=== PATIENT | female | born 1960 | race American Indian/Alaskan Native ===

== ENCOUNTER 2016-09-05 13:36 | Outpatient (CLI) | payer MEDICAID ==
--- NOTE | 2016-09-06 09:55 | Mammography Report ---
Bilateral mammogram: Compared to 09/04/15. CAD study utilized. Findings: Predominance adipose tissue bilaterally. No mass or microcalcification. Focal new asymmetry posterior mid left breast. Impression: Focal new asymmetry posterior left breast. Recommend spot mag and if necessary sonographic examination. BI-RADS CATEGORY: 0 = Needs additional imaging evaluation ACR BI-RADS MAMMOGRAPHIC CODES: 0 = Needs additional imaging evaluation; 1 = Negative; 2 = Benign; 3 = Probably benign; 4 = Suspicious; 5 = Malignant; 6 = Known biopsy-proven malignancy COMMENT: 1. Dense breast tissue, i.e., adenosis, fibrocystic changes, etc., may obscure an underlying neoplasm. 2. Approximately 10% of cancers are not detected with mammography. 3. A negative mammography report should not delay biopsy if a clinically suspicious mass is present. COMMENT: Patient follow-up letters are generated in [employer].
== END 2016-09-05 13:37 | disposition home or self-care (01) ==
LOC: MAMMO 13:36
PROVIDERS: ATTEND Nurse Practitioner Family
DX: Z12.31 Encounter for screening mammogram for malignant neoplasm of breast (principal)
CPT/HCPCS: 77067; G0202

== ENCOUNTER 2016-09-17 07:57 | Outpatient (CLI) | payer MEDICAID ==
--- NOTE | 2016-09-17 08:49 | Mammography Report ---
LEFT DIGITAL DIAGNOSTIC MAMMOGRAM : 09/17/16 07:57:00 CLINICAL: Recalled for asymmetry. COMPARISON:09/05/16 screening FINDINGS: ML and spot compression CC views were performed. Satisfactory effacement of the previously described asymmetry on the spot view. The lateral view is negative. IMPRESSION: Negative Mammogram.No need for left breast ultrasound. BI-RADS CATEGORY: 1 -- Negative RECOMMENDATION: Routine mammographic screening in one year. ACR BI-RADS MAMMOGRAPHIC CODES: 0 = Needs additional imaging evaluation; 1 = Negative; 2 = Benign; 3 = Probably benign; 4 = Suspicious; 5 = Malignant; 6 = Known biopsy-proven malignancy COMMENT: 1. Dense breast tissue, i.e., adenosis, fibrocystic changes, etc., may obscure an underlying neoplasm. 2. Approximately 10% of cancers are not detected with mammography. 3. A negative mammography report should not delay biopsy if a clinically suspicious mass is present. COMMENT: Patient follow-up letters are generated via our [employer] application.
== END 2016-09-17 07:58 | disposition home or self-care (01) ==
LOC: US 07:57
PROVIDERS: ATTEND Nurse Practitioner Family
DX: R92.8 Other abnormal and inconclusive findings on diagnostic imaging of breast (principal)
CPT/HCPCS: G0206-LT

== ENCOUNTER 2016-11-11 03:57 | Emergency (ER) | payer MEDICAID | END 2016-11-11 04:00 | disposition left against medical advice (07) | LOC: ED 03:57 | DX: R07.9 Chest pain, unspecified (principal); Z53.21 Procedure and treatment not carried out due to patient leaving prior to being seen by health care provider ==

== ENCOUNTER 2017-04-05 13:03 | Emergency (ER) | payer MEDICAID ==
[2017-04-05 15:09] LABS: Basophils % (Auto) 0.5 % (0.0-1.8); Eosinophils % (Auto) 3.3 % (0.0-4.3); Hematocrit 41.1 % (30.3-42.9); Hemoglobin 14.2 gm/dl (10.1-14.3); Mean Corpuscular HGB Conc 34 % (30-34); Mean Corpuscular Hemoglobin 30 pg (28-32); Mean Corpuscular Volume 88 fl (79-97); Platelet Count 282 K/mm3 (140-440); Red Blood Count 4.66 M/mm3 (3.65-5.03); Red Cell Distribution Width 11.7 % (13.2-15.2)
[2017-04-05 15:20] LABS: Anion Gap 17 mmol/L; BUN/Creatinine Ratio 10; Blood Urea Nitrogen 7 mg/dL (7-17); Calcium 9.3 mg/dL (8.4-10.2); Carbon Dioxide 28 mmol/L (22-30); Chloride 102.4 mmol/L (98-107); Glucose 117 mg/dL (65-100); Potassium 4.2 mmol/L (3.6-5.0); Sodium 143 mmol/L (137-145)
[2017-04-05 17:55] VITALS: BP 151/89
== END 2017-04-05 21:01 | disposition left against medical advice (07) ==
LOC: ED 13:03
DX: H92.09 Otalgia, unspecified ear (principal); Z53.21 Procedure and treatment not carried out due to patient leaving prior to being seen by health care provider
CPT/HCPCS: 36415; 80048; 84484; 85025; 93005; 93010

== ENCOUNTER → 2017-08-05 | Outpatient (CLI) | payer MEDICAID | LOC: SLR 11:00 | PROVIDERS: ATTEND Otolaryngology | DX: G47.30 Sleep apnea, unspecified (principal); R40.0 Somnolence | CPT/HCPCS: G0399 ==

== ENCOUNTER 2017-10-14 08:58 | Emergency (ER) | payer MEDICAID ==
[2017-10-14] MEDS ORDERED: ASPIRIN PO ONE (09:12)
[2017-10-14 09:38] LABS: Basophils # (Auto) 0.1 K/mm3 (0.0-0.1); Eosinophils # (Auto) 0.1 K/mm3 (0.0-0.4); Eosinophils % (Auto) 1.7 % (0.0-4.3); Hematocrit 42.6 % (30.3-42.9); Hemoglobin 14.5 gm/dl (10.1-14.3); Lymphocytes # (Auto) 2.2 K/mm3 (1.2-5.4); Lymphocytes % (Auto) 26.3 % (13.4-35.0); Mean Corpuscular HGB Conc 34 % (30-34); Mean Corpuscular Hemoglobin 30 pg (28-32); Mean Corpuscular Volume 89 fl (79-97); Monocytes # (Auto) 0.8 K/mm3 (0.0-0.8); Monocytes % (Auto) 9.2 % (0.0-7.3); Platelet Count 287 K/mm3 (140-440); Red Blood Count 4.78 M/mm3 (3.65-5.03); Red Cell Distribution Width 12.6 % (13.2-15.2)
[2017-10-14 09:50] LABS: BUN/Creatinine Ratio 15; Blood Urea Nitrogen 9 mg/dL (7-17); Calcium 9.2 mg/dL (8.4-10.2); Hemolysis Index 34
--- NOTE | 2017-10-14 12:58 | Emergency Department Report ---
ED Chest Pain HPI - General Chief Complaint: Chest Pain Stated Complaint: CP Time Seen by Provider: 10/14/17 12:56 Source: patient Mode of arrival: Ambulatory Limitations: No Limitations - History of Present Illness MD Complaint: chest pain Severity scale (0 -10): 3 - Related Data Home Medications Medication Instructions Recorded Confirmed Last Taken Lisinopril [Zestril TAB] 20 mg PO QDAY 07/26/15 08/26/16 08/26/16 07:30 Simvastatin [Zocor TAB] 10 mg PO QHS 07/26/15 08/26/16 08/25/16 metFORMIN [Glucophage] 500 mg PO BID 07/26/15 08/26/16 08/25/16 Sertraline HCl 1 tab PO QDAY PRN 08/26/16 08/26/16 08/25/16 Previous Rx's Medication Instructions Recorded Last Taken Type Fluticasone [Flonase] 1 spray NS BID #1 bottle 07/26/15 08/25/16 Rx HYDROcodone/APAP 5-325 [Holstein 1 each PO Q6HR PRN #14 tablet 07/26/15 08/25/16 Rx 5/325] Dicyclomine [Bentyl] 10 mg PO QID #30 capsule 04/28/16 08/25/16 Rx Famotidine [Pepcid] 20 mg PO BID #60 tablet 04/28/16 08/25/16 Rx Allergies Allergy/AdvReac Type Severity Reaction Status Date / Time No Known Allergies Allergy Verified 10/14/17 09:08 ED Review of Systems ROS: Stated complaint: CP Other details as noted in HPI ED Past Medical Hx - Past Medical History Hx Hypertension: Yes Hx Diabetes: Yes Hx Headaches / Migraines: Yes Hx Psychiatric Treatment: Yes (DEPRESSION) Additional medical history: dengenerative spine disease, gallstone. CHRONIC BACK PAIN, thyroid disease - Surgical History Hx Appendectomy: Yes Additional Surgical History: right hand surg for carpel tunnel. HYSTERECTOMY - Social History Smoking Status: Never Smoker Substance Use Type: None - Medications Home Medications: Home Medications Medication Instructions Recorded Confirmed Last Taken Type Fluticasone [Flonase] 1 spray NS BID #1 bottle 07/26/15 08/26/16 08/25/16 Rx HYDROcodone/APAP 5-325 [Holstein 1 each PO Q6HR PRN #14 tablet 07/26/15 08/26/16 Rx 5/325] Lisinopril [Zestril TAB] 20 mg PO QDAY 07/26/15 08/26/16 08/26/16 07:30 History Simvastatin [Zocor TAB] 10 mg PO QHS 07/26/15 08/26/16 08/25/16 History metFORMIN [Glucophage] 500 mg PO BID 07/26/15 08/26/16 08/25/16 History Dicyclomine [Bentyl] 10 mg PO QID #30 capsule 04/28/16 08/26/16 08/25/16 Rx Famotidine [Pepcid] 20 mg PO BID #60 tablet 04/28/16 08/26/16 08/25/16 Rx Sertraline HCl 1 tab PO QDAY PRN 08/26/16 08/26/16 08/25/16 History ED Physical Exam - General Limitations: No Limitations ED Course Vital Signs 10/14/17 09:08 Temperature 98.7 F Pulse Rate 87 Respiratory 16 Rate Blood Pressure 131/85 O2 Sat by Pulse 98 Oximetry - Reevaluation(s) Reevaluation #1: 10/14/17 15:55 Pt had a stable Ed course with 2 neg troponins. Pt will be dc'd home with f/u RONDA score - Ronda Score Age > 65: (0) No Aspirin use within the Past 7 Days: (0) No 3 or more CAD Risk Factors: (1) Yes 2 or more Angina events in past 24 hrs: (1) Yes Known CAD with more than 50% Stenosis: (0) No Elevated Cardiac Markers: (0) No ST Deviation Greater than 0.5mm: (0) No RONDA Score: 2 ED Medical Decision Making - Lab Data Result diagrams: 10/14/17 09:29 10/14/17 09:29 Critical care attestation.: If time is entered above; I have spent that time in minutes in the direct care of this critically ill patient, excluding procedure time. ED Disposition Condition: Stable Referrals: PRIMARY CARE,MD [Primary Care Provider] - 3-5 Days
[2017-10-14] MEDS ORDERED: ASPIRIN ONE (14:31)
--- NOTE | 2017-10-14 15:38 | Cat Scan Report ---
CTA CHEST: HISTORY: chest pain. COMPARISON: none. TECHNIQUE: Helical CT in 1.25mm intervals following IV contrast. Pulmonary embolus protocol. Sagittal and coronal reformatted images. Rotational MIP images. FINDINGS: Contrast bolus is satisfactory. No pulmonary embolus is identified. Thyroid gland: Normal. Tracheobronchial tree: Normal. Esophagus: Normal. Heart: Normal. Pericardium: Normal. Mediastinum: Normal. Lung Cummings: normal. Pleural Spaces: Normal. Musculoskeletal: Normal. IMPRESSION: No evidence for pulmonary embolus. Unremarkable CT chest with contrast.
[2017-10-14 16:06] VITALS: BP 120/52
== END 2017-10-14 16:06 | disposition home or self-care (01) ==
LOC: ED 08:58
DX: R07.9 Chest pain, unspecified (principal); I10 Essential (primary) hypertension; G43.909 Migraine, unspecified, not intractable, without status migrainosus; E11.9 Type 2 diabetes mellitus without complications
CPT/HCPCS: 36415; 71275; 80048; 84484; 85025; 93005; 93010; 99284; Q9967

== ENCOUNTER 2018-07-09 08:25 | Day surgery (SDC) | payer MEDICAID, SELFPAY ==
[~2018-07-09 08:25] MED LIST: ADRENALINE P/F ONE; ANCEF/STERILE WATER 2 GM/20 ML IV NR; DEPO-Medrol ONE; MARCAINE-EPI/PF 0.25%-1:200,000 INFILTRATI ONE
[2018-07-09] MEDS ORDERED: LACTATED RINGERS 1,000 ML ONE ×2 (09:45→12:30)
[2018-07-09] MEDS ORDERED: VERSED ONE (09:48)
[2018-07-09] MEDS ORDERED: DECADRON ONE (09:49)
[2018-07-09] MEDS ORDERED: SUBLIMAZE ONE (09:49)
[2018-07-09] MEDS ORDERED: PEPCID IV ONE (09:49)
[2018-07-09] MEDS ORDERED: LACTATED RINGERS 1,000 ML IV SCH (10:00)
[2018-07-09] MEDS ORDERED: DILAUDID ONE (10:01)
[2018-07-09] MEDS ORDERED: ZEMURON IV ONE (10:01)
[2018-07-09] MEDS ORDERED: DIPRIVAN 10 MG/ML IV ONE (10:01)
[2018-07-09] MEDS ORDERED: XYLOCAINE MPF 2% ONE (10:02)
[2018-07-09] MEDS ORDERED: ADRENALIN IV ONE (11:32)
[2018-07-09] MEDS ORDERED: NACL 0.9% IR ONE ×2 (11:33)
[2018-07-09] MEDS ORDERED: BLOXIVERZ ONE (12:13)
[2018-07-09] MEDS ORDERED: ROBINUL ONE (12:13)
--- NOTE | 2018-07-09 12:48 | Procedure Note ---
Date of procedure: 07/09/18 Pre-op diagnosis: rotator cuff tear right shoulder Post-op diagnosis: same Procedure: Arthroscopy right shoulder with subacromial decompression and rotator cuff tendon using suture anchors Procedure The patient was brought to the OR placed in the OR table in supine position following induction and intubation by anesthesia patient was placed in the left lateral decubitus position the right upper extremity was prepped and draped in the usual sterile manner. A timeout procedure was done to identify the patient and the correct operative site. Routine arthroscopic portals were made following introduction of the arthroscope and instruments and insufflation of the subacromial space with normal saline solution patient was noted to have a full-thickness rotator cuff tear which extended from the supraspinatus anteriorly towards the infraspinatus posteriorly in addition she was also noted to have abundant synovial bursal thickening as well as significant impingement from the acromion and acromioclavicular joints. Using a tissue ablator the soft tissue was removed from both the bursal tissues as well as the periosteal tissues overlying the distal acromion and acromioclavicular joints A large bur was used to debride the bony impingement again this was done under arthroscopic visualization. The anatomic footprint was then seen and debrided using the tissue ablator the rotator cuff tendon was grasped using a tissue grasper and appeared to move quite mobile and to anterior cruciate ligament footprint. Next 1 suture anchor sutures were placed the suture anchors were secured into the greater tuberosity followed by tightening of the sutures and pulling the rotator cuff tendon firmly onto the anatomic footprint arthroscopic photographs were obtained showing good placement of the rotator cuff repair following this the wound was copiously irrigated via stab wounds were repaired with 2 postop dressings were applied the patient was extubated and was taken to postanesthesia recovery in stable condition. Patient will also receive a scalene nerve block for postop pain management Anesthesia: MAC, regional Surgeon: BRAULIO HANSEN Channel Cementer: SAYRA ROBLERO Estimated blood loss: minimal Pathology: none Condition: stable Disposition: PACU
--- NOTE | 2018-07-09 14:23 | Anesthesia Day of Surgery ---
Anesthesia Day of Surgery - Day of Surgery Patient Examined: Yes Patient H&P Reviewed: Yes Patient is NPO: Yes
--- NOTE | 2018-07-09 14:24 | Post Anesthesia Evaluation ---
- Post Anesthesia Evaluation Patient Participated: Yes Airway Patent: Yes Stable Respiratory Function: Yes Nausea/Vomiting: No Temp > 96.8F: Yes Pain Manageable: Yes Adequeate Hydration: Yes Anesthesia Complications: No
--- NOTE | 2018-07-09 14:24 | Anesthesia Consultation ---
Anesthesia Consult and Med Hx Date of service: 07/09/18 - Airway Anesthetic Teeth Evaluation: Poor ROM Head & Neck: Adequate Mental/Hyoid Distance: Adequate Mallampati Class: Class III Intubation Access Assessment: Possibly Difficult - Pulmonary Exam CTA: Yes - Cardiac Exam Cardiac Exam: RRR - Pre-Operative Health Status ASA Pre-Surgery Classification: ASA3 Proposed Anesthetic Plan: General Nerve Block: IS (LUIS, HTN, Bipolar, Schizophrenia) - Pulmonary Hx Smoking: No Hx Sleep Apnea: Yes (DX SLEEP APNEA WITH IRREGULAR CPAP USE) - Cardiovascular System Hx Hypertension: Yes (X 4 YRS) - Central Nervous System Hx Back Pain: Yes (CHRONIC BACK PAIN WITH RT LEG PAIN) Hx Psychiatric Problems: Yes - Endocrine Hx Non-Insulin Dependent Diabetes: Yes Hx Hypothyroidism: Yes (ON DAILY MEDS) - Other Systems Hx Substance Use: No Hx Cancer: No
[2018-07-09 15:57] VITALS: BP 110/75
== END 2018-07-09 15:40 | disposition home or self-care (01) ==
LOC: OR 08:25
PROVIDERS: ATTEND Orthopaedic Surgery
DX: M75.121 Complete rotator cuff tear or rupture of right shoulder, not specified as traumatic (principal); E11.9 Type 2 diabetes mellitus without complications; I10 Essential (primary) hypertension; M19.90 Unspecified osteoarthritis, unspecified site; F31.9 Bipolar disorder, unspecified; G43.909 Migraine, unspecified, not intractable, without status migrainosus; E03.9 Hypothyroidism, unspecified; E78.00 Pure hypercholesterolemia, unspecified; G47.30 Sleep apnea, unspecified; Z79.84 Long term (current) use of oral hypoglycemic drugs; Z79.899 Other long term (current) drug therapy; Z90.49 Acquired absence of other specified parts of digestive tract; Z98.890 Other specified postprocedural states; Z83.3 Family history of diabetes mellitus; Z80.9 Family history of malignant neoplasm, unspecified; Z82.49 Family history of ischemic heart disease and other diseases of the circulatory system
CPT/HCPCS: 29826; 29827; 82962; A4217; C1713; J0171; J0690; J1030; J1100; J1170; J2250; J2704; J2710; J3010; J7120

== ENCOUNTER 2018-09-09 11:32 | Outpatient (CLI) | payer MEDICAID ==
--- NOTE | 2018-09-09 15:25 | Mammography Report ---
BILATERAL DIGITAL SCREENING MAMMOGRAM with CAD: 09/09/18 11:32:00 CLINICAL: Routine screening. COMPARISON: 09/05/16 FINDINGS: There are bilateral scattered areas of fibroglandular density.No mass, architectural distortion or suspicious calcifications. IMPRESSION: No mammographic evidence of malignancy. BI-RADS CATEGORY: 1 -- Negative RECOMMENDATION: Routine mammographic screening in one year. COMMENT: Patient follow-up letters are generated by our [employer] application.
== END 2018-09-09 11:33 | disposition home or self-care (01) ==
LOC: MAMMO 11:32
PROVIDERS: ATTEND Nurse Practitioner Family
DX: Z12.31 Encounter for screening mammogram for malignant neoplasm of breast (principal); I10 Essential (primary) hypertension; E78.00 Pure hypercholesterolemia, unspecified; M19.90 Unspecified osteoarthritis, unspecified site; E11.9 Type 2 diabetes mellitus without complications; E03.9 Hypothyroidism, unspecified; Z90.49 Acquired absence of other specified parts of digestive tract
CPT/HCPCS: 77067

== ENCOUNTER 2018-09-30 05:31 | Emergency (ER) | payer MEDICAID ==
[2018-09-30 05:41] VITALS: BP 133/70
== END 2018-09-30 08:22 ==
LOC: ED 05:31
DX: M54.2 Cervicalgia (principal); R51 Headache; Z53.21 Procedure and treatment not carried out due to patient leaving prior to being seen by health care provider

== ENCOUNTER 2018-12-13 08:41 | Emergency (ER) | payer MEDICAID ==
[2018-12-13] MEDS ORDERED: ASPIRIN PO ONE (08:59)
--- NOTE | 2018-12-13 09:55 | XRay Report ---
PROCEDURE: XR CHEST 1V AP TECHNIQUE: Chest radiograph, PA view. HISTORY: Chest Pain COMPARISONS: None currently available. FINDINGS: Cardiac silhouette is within normal limits. There is no effusion. There is no pneumothorax. There is no consolidation. There are no suspicious osseous lesions. IMPRESSION: * No acute cardiopulmonary findings. This document is electronically signed by Lux Meeks MD., December 13 2018 09:53:28 AM ET
[2018-12-13] MEDS ORDERED: TORADOL IM ONE (10:28)
--- NOTE | 2018-12-13 10:33 | Emergency Department Report ---
ED Chest Pain HPI - General Chief Complaint: Chest Pain Stated Complaint: CHEST PAIN Time Seen by Provider: 12/13/18 10:18 Source: patient, old records reviewed Mode of arrival: Ambulatory Limitations: No Limitations - History of Present Illness Initial Comments: 58-year-old female with a past medical history of arthritis, diabetes, hypertension, depression, and elevated cholesterol presents to the hospital chest pain 1 week. Pain was initially intermittent becoming more frequent since yesterday. Pain is in the sternum and radiates to the left upper chest and shoulder and is moderate in intensity. Pain occurs every 3 min and is described as sharp. Pain is worse with deep inspiration, movement, and palpation. Mild dyspnea on exertion reported. Patient has intermittent pain to her bilateral legs since re-initiating cholesterol medication. Patient does not smoke cigarettes, denies a history of CAD, and has a negative treadmill stress test on record here from 07/2015. Patient states she has a recent negative stress test a year ago. She does not take aspirin every day. She denies history of PE/DVT, recent travel, unilateral calf tenderness or edema. Patient does report a dry cough without fever. States she is under a lot stress lately. PMD DR Espana - Related Data Home Medications Medication Instructions Recorded Confirmed Last Taken Lisinopril [Zestril TAB] 20 mg PO QDAY 07/26/15 07/09/18 07/09/18 06:00 Simvastatin [Zocor TAB] 10 mg PO QHS 07/26/15 07/09/18 07/07/18 21:00 metFORMIN [Glucophage] 500 mg PO BID 07/26/15 07/09/18 07/07/18 21:00 Fluticasone [Flonase] 1 spray NS DAILY 05/28/18 07/09/18 07/07/18 09:00 Ibuprofen [Ibuprofen 800] 800 mg PO PRN PRN 05/28/18 07/09/18 07/07/18 09:00 Levothyroxine Sodium [Synthroid] 112 mcg PO DAILY 05/28/18 07/09/18 07/09/18 06:00 Previous Rx's Medication Instructions Recorded Last Taken Type oxyCODONE [roxiCODONE] 5 mg PO Q6HR PRN #30 tablet 07/09/18 Unknown Rx Ibuprofen [Motrin] 800 mg PO Q8HR PRN #30 tablet 12/13/18 Unknown Rx traMADol [Ultram 50 MG tab] 50 mg PO Q6HR PRN #20 tablet 12/13/18 Unknown Rx Allergies Allergy/AdvReac Type Severity Reaction Status Date / Time No Known Allergies Allergy Verified 10/14/17 09:08 Heart Score - HEART Score History: Slightly suspicious EKG: Non-specific Age: 45-65 Risk factors: > 3 risk factors or hx of atherosclerotic disease Troponin: < normal limit HEART Score: 4 ED Review of Systems ROS: Stated complaint: CHEST PAIN Other details as noted in HPI Comment: All other systems reviewed and negative ED Past Medical Hx - Past Medical History Previous Medical History?: Yes Hx Hypertension: Yes (X 4 YRS) Hx Diabetes: Yes Hx Arthritis: Yes Hx Headaches / Migraines: Yes (MIGRAINES) Hx Psychiatric Treatment: Yes (DEPRESSION) Hx HIV: No Additional medical history: dengenerative spine disease, gallstone. CHRONIC BACK PAIN, thyroid disease. Elevated cholesterol - Surgical History Past Surgical History?: Yes Hx Cholecystectomy: Yes Hx Appendectomy: Yes Additional Surgical History: right hand surg for carpel tunnel. HYSTERECTOMY - Social History Smoking Status: Never Smoker Substance Use Type: Alcohol, Prescribed - Medications Home Medications: Home Medications Medication Instructions Recorded Confirmed Last Taken Type Lisinopril [Zestril TAB] 20 mg PO QDAY 07/26/15 07/09/18 07/09/18 06:00 History Simvastatin [Zocor TAB] 10 mg PO QHS 07/26/15 07/09/18 07/07/18 21:00 History metFORMIN [Glucophage] 500 mg PO BID 07/26/15 07/09/18 07/07/18 21:00 History Fluticasone [Flonase] 1 spray NS DAILY 05/28/18 07/09/18 07/07/18 09:00 History Ibuprofen [Ibuprofen 800] 800 mg PO PRN PRN 05/28/18 07/09/18 07/07/18 09:00 History Levothyroxine Sodium [Synthroid] 112 mcg PO DAILY 05/28/18 07/09/18 07/09/18 06:00 History oxyCODONE [roxiCODONE] 5 mg PO Q6HR PRN #30 tablet 07/09/18 Unknown Rx Ibuprofen [Motrin] 800 mg PO Q8HR PRN #30 tablet 06/23/19 Unknown Rx traMADol [Ultram 50 MG tab] 50 mg PO Q6HR PRN #20 tablet 12/13/18 Unknown Rx ED Physical Exam - General Limitations: No Limitations - Other Other exam information: General: No limitations, patient is alert in no acute distress Head exam: Atraumatic, normocephalic Eyes exam: Normal appearance ENT: Moist mucous membrane Neck exam: Normal inspection, full range of motion, no meningismus nontender Respiratory exam: Clear to auscultation bilateral, no wheezes, rales, crackles Cardiovascular: Normal rate and rhythm, normal heart sounds, sternal chest wall tenderness and left upper chest wall tenderness Abdomen: Soft, nondistended, and nontender, with normal bowel sounds, no rebound, or guarding Extremity: Full range of motion normal inspection no deformity, no calf tenderness or edema Back: Normal Inspection, full range of motion, no tenderness Neurologic: Alert, oriented x3, cranial nerves intact, no motor or sensory deficit Psychiatric: normal affect, normal mood Skin: Warm, dry, intact ED Course Vital Signs 12/13/18 12/13/18 12/13/18 08:56 10:52 11:00 Temperature 98.2 F Pulse Rate 92 H 82 Respiratory 18 15 Rate Blood Pressure 135/81 101/67 O2 Sat by Pulse 99 100 100 Oximetry 12/13/18 12/13/18 12/13/18 11:10 11:16 11:30 Temperature Pulse Rate 80 80 Respiratory 18 11 L 13 Rate Blood Pressure 115/78 115/78 O2 Sat by Pulse 100 99 Oximetry 12/13/18 12/13/18 12/13/18 11:40 11:46 12:00 Temperature Pulse Rate 84 84 Respiratory 18 11 L 11 L Rate Blood Pressure 109/73 112/79 O2 Sat by Pulse 99 98 Oximetry 12/13/18 12/13/18 12/13/18 12:15 12:21 12:30 Temperature Pulse Rate 85 83 Respiratory 14 18 18 Rate Blood Pressure 125/80 104/58 O2 Sat by Pulse 100 99 100 Oximetry 12/13/18 12/13/18 12/13/18 12:45 13:00 16:10 Temperature Pulse Rate 82 91 H 82 Respiratory 17 13 17 Rate Blood Pressure 126/79 126/79 126/79 O2 Sat by Pulse 100 99 86 Oximetry 12/13/18 16:16 Temperature Pulse Rate 80 Respiratory 10 L Rate Blood Pressure 113/63 O2 Sat by Pulse Oximetry - Reevaluation(s) Reevaluation #1: 12/13/18 12:49 pain improved after toradol. ddimer elevated, cta chest ordered pending creatinine result 12/13/18 16:24 Pt remains pain-free after initial Toradol shot. RONDA score - Ronda Score Age > 65: (0) No Aspirin use within the Past 7 Days: (0) No 3 or more CAD Risk Factors: (1) Yes 2 or more Angina events in past 24 hrs: (1) Yes Known CAD with more than 50% Stenosis: (0) No Elevated Cardiac Markers: (0) No ST Deviation Greater than 0.5mm: (0) No RONDA Score: 2 ED Medical Decision Making - Lab Data Result diagrams: 12/13/18 11:45 12/13/18 11:45 Lab Results 12/13/18 12/13/18 12/13/18 Range/Units 11:45 11:45 11:45 WBC 8.8 (4.5-11.0) K/mm3 RBC 4.85 (3.65-5.03) M/mm3 Hgb 14.8 H (10.1-14.3) gm/dl Hct 43.1 H (30.3-42.9) % MCV 89 (79-97) fl MCH 31 (28-32) pg MCHC 34 (30-34) % RDW 12.5 L (13.2-15.2) % Plt Count 298 (140-440) K/mm3 Lymph % (Auto) 20.2 (13.4-35.0) % Stafford % (Auto) 7.0 (0.0-7.3) % Eos % (Auto) 2.3 (0.0-4.3) % Baso % (Auto) 1.0 (0.0-1.8) % Lymph # 1.8 (1.2-5.4) K/mm3 Stafford # 0.6 (0.0-0.8) K/mm3 Eos # 0.2 (0.0-0.4) K/mm3 Baso # 0.1 (0.0-0.1) K/mm3 Seg Neutrophils % 69.5 (40.0-70.0) % Seg Neutrophils # 6.1 (1.8-7.7) K/mm3 PT (12.2-14.9) Sec. INR (0.87-1.13) D-Dimer (0-234) ng/mlDDU Sodium 138 (137-145) mmol/L Potassium 3.6 (3.6-5.0) mmol/L Chloride 97.7 L (98-107) mmol/L Carbon Dioxide 28 (22-30) mmol/L Anion Gap 16 mmol/L BUN 9 (7-17) mg/dL Creatinine 0.6 L (0.7-1.2) mg/dL Estimated GFR > 60 ml/min BUN/Creatinine Ratio 15 % Glucose 122 H (65-100) mg/dL Calcium 9.4 (8.4-10.2) mg/dL Total Creatine Kinase (30-135) units/L CK-MB (CK-2) (0.0-4.0) ng/mL CK-MB (CK-2) Rel Index (0-4) Troponin T < 0.010 < 0.010 (0.00-0.029) ng/mL 12/13/18 12/13/18 12/13/18 Range/Units 11:45 11:45 14:51 WBC (4.5-11.0) K/mm3 RBC (3.65-5.03) M/mm3 Hgb (10.1-14.3) gm/dl Hct (30.3-42.9) % MCV (79-97) fl MCH (28-32) pg MCHC (30-34) % RDW (13.2-15.2) % Plt Count (140-440) K/mm3 Lymph % (Auto) (13.4-35.0) % Stafford % (Auto) (0.0-7.3) % Eos % (Auto) (0.0-4.3) % Baso % (Auto) (0.0-1.8) % Lymph # (1.2-5.4) K/mm3 Stafford # (0.0-0.8) K/mm3 Eos # (0.0-0.4) K/mm3 Baso # (0.0-0.1) K/mm3 Seg Neutrophils % (40.0-70.0) % Seg Neutrophils # (1.8-7.7) K/mm3 PT 12.1 L (12.2-14.9) Sec. INR 0.92 (0.87-1.13) D-Dimer 1789.07 H (0-234) ng/mlDDU Sodium (137-145) mmol/L Potassium (3.6-5.0) mmol/L Chloride (98-107) mmol/L Carbon Dioxide (22-30) mmol/L Anion Gap mmol/L BUN (7-17) mg/dL Creatinine (0.7-1.2) mg/dL Estimated GFR ml/min BUN/Creatinine Ratio % Glucose (65-100) mg/dL Calcium (8.4-10.2) mg/dL Total Creatine Kinase 89 (30-135) units/L CK-MB (CK-2) 3.3 (0.0-4.0) ng/mL CK-MB (CK-2) Rel Index 3.7 (0-4) Troponin T < 0.010 (0.00-0.029) ng/mL - EKG Data -: EKG Interpreted by De EKG shows normal: sinus rhythm, axis (qrs 50), QRS complexes (qrsd 76), ST-T waves (no stemi) Rate: normal (86) - EKG Data When compared to previous EKG there are: no significant change - Radiology Data Radiology results: report reviewed PROCEDURE: VL VENOUS DUPLEX LE BILAT HISTORY: b/l leg pain, elevated ddimer FINDINGS: Real-time ultrasound of the right leg and left leg was performed using grayscale and color Doppler images. These images demonstrate no evidence of deep venous thrombus in the right and left common femoral vein, superficial femoral vein, popliteal vein or posterior tibial vein. IMPRESSION: No DVT in either leg PROCEDURE: XR CHEST 1V AP TECHNIQUE: Chest radiograph, PA view. HISTORY: Chest Pain COMPARISONS: None currently available. FINDINGS: Cardiac silhouette is within normal limits. There is no effusion. There is no pneumothorax. There is no consolidation. There are no suspicious osseous lesions. IMPRESSION: * No acute cardiopulmonary findings. - Medical Decision Making Pt has repeated negative cardiac enzymes. Unchanged EKG, no signs of ST elevation DC, nonstemi, or pulmonary embolism, or DVT after today's workup. Pt overall low risk and has a negative stress test within the last year with atypical chest pain. pt treated for costochondritis Follow-up advised with pmd - Differential Diagnosis costochondritis, DC, unstable angina, pulmonary embolism Critical Care Time: No Critical care attestation.: If time is entered above; I have spent that time in minutes in the direct care of this critically ill patient, excluding procedure time. ED Disposition Clinical Impression: Costochondritis, acute Disposition: DC-01 TO HOME OR SELFCARE Is pt being admited?: No Does the pt Need Aspirin: No Condition: Stable Instructions: Costochondritis (ED) Additional Instructions: Take the medication as prescribed. Follow up with your doctor or the clinic/doctor provided. Return if symptoms worsen as indicated by your discharge instructions Prescriptions: Ibuprofen [Motrin] 800 mg PO Q8HR PRN #30 tablet PRN Reason: Pain, Moderate (4-6) traMADol [Ultram 50 MG tab] 50 mg PO Q6HR PRN #20 tablet PRN Reason: Pain Referrals: Dr Espana, PMD [Other] - 7-10 days Time of Disposition: 16:27
[2018-12-13 12:30] LABS: Basophils # (Auto) 0.1 K/mm3 (0.0-0.1); Eosinophils # (Auto) 0.2 K/mm3 (0.0-0.4); Eosinophils % (Auto) 2.3 % (0.0-4.3); Hematocrit 43.1 % (30.3-42.9); Hemoglobin 14.8 gm/dl (10.1-14.3); Lymphocytes # (Auto) 1.8 K/mm3 (1.2-5.4); Lymphocytes % (Auto) 20.2 % (13.4-35.0); Mean Corpuscular HGB Conc 34 % (30-34); Mean Corpuscular Volume 89 fl (79-97); Monocytes # (Auto) 0.6 K/mm3 (0.0-0.8); Platelet Count 298 K/mm3 (140-440); Red Blood Count 4.85 M/mm3 (3.65-5.03); Red Cell Distribution Width 12.5 % (13.2-15.2)
[2018-12-13 12:40] LABS: INR 0.92 (0.87-1.13)
[2018-12-13 12:52] LABS: BUN/Creatinine Ratio 15; Blood Urea Nitrogen 9 mg/dL (7-17); Calcium 9.4 mg/dL (8.4-10.2); Hemolysis Index 8
[2018-12-13 12:53] LABS: Creatine Kinase MB 3.3 ng/mL (0.0-4.0)
[2018-12-13] MEDS ORDERED: NACL 0.9% 1000 ML 1,000 ML ONE (13:01)
[2018-12-13] MEDS ORDERED: K-DUR PO ONE ×2 (13:11→13:12)
[2018-12-13] MEDS ORDERED: PROTONIX IV ONE (13:11)
--- NOTE | 2018-12-13 14:37 | Vascular Lab Report ---
PROCEDURE: VL VENOUS DUPLEX LE BILAT HISTORY: b/l leg pain, elevated ddimer FINDINGS: Real-time ultrasound of the right leg and left leg was performed using grayscale and color Doppler im ages. These images demonstrate no evidence of deep venous thrombus in the right and left common femoral vei n, superficial femoral vein, popliteal vein or posterior tibial vein. IMPRESSION: No DVT in either leg This document is electronically signed by Jovi Lugo MD., December 13 2018 02:35:33 PM ET
--- NOTE | 2018-12-13 15:47 | Cat Scan Report ---
PROCEDURE: CT ANGIO CHEST TECHNIQUE: Computerized tomographic angiography of the chest was performed after the IV injection of iodinated nonionic contrast including image processing. The image data was postprocessed using 2-di mensional multiplanar reformatted (MPR) and 3-dimensional (MIP and/or volume rendered) techniques. Au tomated exposure control, adjustment of mA and/or kV according to patient size, or iterative reconstr uction dose optimization techniques were utilized. CT DOSE LENGTH PRODUCT: 493.6 mGycm HISTORY: cp, sob, elevated d-dimer COMPARISONS: CT head 10/14/2017 . FINDINGS: Heart and pericardium: Normal. Thoracic aorta: Normal. Pulmonary vasculature: Normal. No evidence for PE. Lymph nodes: No enlarged thoracic lymph nodes. Mediastinum: Residual thymus in the anterior mediastinum is again noted, unchanged Lungs: Normal. Pleural space: No effusion, thickening, or pneumothorax. Musculoskeletal structures: No significant abnormality. Upper abdominal structures: No significant abnormality. IMPRESSION: Normal exam. No change. No evidence for pulmonary embolism. This document is electronically signed by Yaritza Trinidad MD., December 13 2018 03:45:50 PM ET
[2018-12-13 16:17] VITALS: BP 113/63
== END 2018-12-13 17:05 | disposition home or self-care (01) ==
LOC: ED 08:41
DX: M94.0 Chondrocostal junction syndrome [Tietze] (principal); I10 Essential (primary) hypertension; E11.9 Type 2 diabetes mellitus without complications; M19.90 Unspecified osteoarthritis, unspecified site; G43.909 Migraine, unspecified, not intractable, without status migrainosus; F32.9 Major depressive disorder, single episode, unspecified; E78.00 Pure hypercholesterolemia, unspecified; Z90.89 Acquired absence of other organs; Z90.49 Acquired absence of other specified parts of digestive tract; Z90.710 Acquired absence of both cervix and uterus; Z79.84 Long term (current) use of oral hypoglycemic drugs; Z79.899 Other long term (current) drug therapy
CPT/HCPCS: 36415; 71045; 71275; 80048; 82550; 82553; 84484; 85025; 85379; 85610; 93005; 93010; 93970; 96372; 99285; J1885; Q9967; C9113; J7030

== ENCOUNTER 2019-01-31 19:51 | Emergency (ER) | payer MEDICAID ==
[2019-01-31 19:59] VITALS: BP 124/84
--- NOTE | 2019-01-31 22:14 | Emergency Department Report ---
ED ENT HPI - General Chief complaint: Earache Stated complaint: RIGHT SIDE NECK PAIN/EAR Time Seen by Provider: 01/31/19 22:12 Source: patient Mode of arrival: Ambulatory Limitations: No Limitations - History of Present Illness Initial comments: This is a 58-year-old -[place] female presents to the emergency room with a migraine right ear for two weeks. Patient reports right ear pain with eustachian tube placed to the right ear one year ago and continued to have pain. Patient states she was seen in an emergency room 2 weeks ago and diagnosed with sinusitis and completed antibiotics with no improvement of symptoms. Patient reports headache is worsening and constant throbbing intensity. Reports pain is nothing experienced before. MD complaint: ear pain (right), other (headache) Onset/Timin -: week(s) Location: R ear Severity: severe Severity scale (0 -10): 10 Quality: other (throbbing) Consistency: constant Improves with: none Worsens with: none Context- Ear: recent illness - Related Data Home Medications Medication Instructions Recorded Confirmed Last Taken Lisinopril [Zestril TAB] 20 mg PO QDAY 07/26/15 07/09/18 07/09/18 06:00 Simvastatin [Zocor TAB] 10 mg PO QHS 07/26/15 07/09/18 07/07/18 21:00 metFORMIN [Glucophage] 500 mg PO BID 07/26/15 07/09/18 07/07/18 21:00 Fluticasone [Flonase] 1 spray NS DAILY 05/28/18 07/09/18 07/07/18 09:00 Ibuprofen [Ibuprofen 800] 800 mg PO PRN PRN 05/28/18 07/09/18 07/07/18 09:00 Levothyroxine Sodium [Synthroid] 112 mcg PO DAILY 05/28/18 07/09/18 07/09/18 06:00 Previous Rx's Medication Instructions Recorded Last Taken Type oxyCODONE [roxiCODONE] 5 mg PO Q6HR PRN #30 tablet 07/09/18 Unknown Rx traMADol [Ultram 50 MG tab] 50 mg PO Q6HR PRN #20 tablet 12/13/18 Unknown Rx Amoxicillin/K Clav Tab [Augmentin 1 tab PO Q12HR #20 tab 01/19/19 Unknown Rx 875 mg] Ibuprofen [Motrin 800 MG tab] 800 mg PO Q8HR PRN #30 tablet 01/19/19 Unknown Rx Pseudoephedrine ER [Sudafed 12 Hr] 120 mg PO BID #8 tablet.er 01/19/19 Unknown Rx Butalb/Acetamin/Caff 50-325-40 1 tab PO Q8HR PRN #12 tablet 01/31/19 Unknown Rx [Fioricet 50-325-40] Ibuprofen [Motrin 600 MG tab] 600 mg PO Q8H PRN #20 tablet 01/31/19 Unknown Rx Allergies Allergy/AdvReac Type Severity Reaction Status Date / Time No Known Allergies Allergy Verified 10/14/17 09:08 ED Dental HPI - General Chief complaint: Earache Stated complaint: RIGHT SIDE NECK PAIN/EAR Time Seen by Provider: 01/31/19 22:12 Source: patient Mode of arrival: Ambulatory Limitations: No Limitations - Related Data Home Medications Medication Instructions Recorded Confirmed Last Taken Lisinopril [Zestril TAB] 20 mg PO QDAY 07/26/15 07/09/18 07/09/18 06:00 Simvastatin [Zocor TAB] 10 mg PO QHS 07/26/15 07/09/18 07/07/18 21:00 metFORMIN [Glucophage] 500 mg PO BID 07/26/15 07/09/18 07/07/18 21:00 Fluticasone [Flonase] 1 spray NS DAILY 05/28/18 07/09/18 07/07/18 09:00 Ibuprofen [Ibuprofen 800] 800 mg PO PRN PRN 05/28/18 07/09/18 07/07/18 09:00 Levothyroxine Sodium [Synthroid] 112 mcg PO DAILY 05/28/18 07/09/18 07/09/18 06:00 Previous Rx's Medication Instructions Recorded Last Taken Type oxyCODONE [roxiCODONE] 5 mg PO Q6HR PRN #30 tablet 07/09/18 Unknown Rx traMADol [Ultram 50 MG tab] 50 mg PO Q6HR PRN #20 tablet 12/13/18 Unknown Rx Amoxicillin/K Clav Tab [Augmentin 1 tab PO Q12HR #20 tab 01/19/19 Unknown Rx 875 mg] Ibuprofen [Motrin 800 MG tab] 800 mg PO Q8HR PRN #30 tablet 01/19/19 Unknown Rx Pseudoephedrine ER [Sudafed 12 Hr] 120 mg PO BID #8 tablet.er 01/19/19 Unknown Rx Butalb/Acetamin/Caff 50-325-40 1 tab PO Q8HR PRN #12 tablet 01/31/19 Unknown Rx [Fioricet 50-325-40] Ibuprofen [Motrin 600 MG tab] 600 mg PO Q8H PRN #20 tablet 01/31/19 Unknown Rx Allergies Allergy/AdvReac Type Severity Reaction Status Date / Time No Known Allergies Allergy Verified 10/14/17 09:08 ED Review of Systems ROS: Stated complaint: RIGHT SIDE NECK PAIN/EAR Other details as noted in HPI Constitutional: denies: chills, fever ENT: ear pain (right ear). denies: throat pain Respiratory: denies: cough, shortness of breath, wheezing Cardiovascular: denies: chest pain, palpitations Gastrointestinal: denies: abdominal pain, nausea, diarrhea Skin: denies: rash, lesions Neurological: headache. denies: weakness, paresthesias Psychiatric: denies: anxiety, depression ED Past Medical Hx - Past Medical History Hx Hypertension: Yes (X 4 YRS) Hx Diabetes: Yes Hx Arthritis: Yes Hx Headaches / Migraines: Yes (MIGRAINES) Hx Psychiatric Treatment: Yes (DEPRESSION) Hx HIV: No Additional medical history: dengenerative spine disease, gallstone. CHRONIC BACK PAIN, thyroid disease. Elevated cholesterol - Surgical History Hx Cholecystectomy: Yes Hx Appendectomy: Yes Additional Surgical History: right hand surg for carpel tunnel. HYSTERECTOMY - Social History Smoking Status: Never Smoker Substance Use Type: None - Medications Home Medications: Home Medications Medication Instructions Recorded Confirmed Last Taken Type Lisinopril [Zestril TAB] 20 mg PO QDAY 07/26/15 07/09/18 07/09/18 06:00 History Simvastatin [Zocor TAB] 10 mg PO QHS 07/26/15 07/09/18 07/07/18 21:00 History metFORMIN [Glucophage] 500 mg PO BID 07/26/15 07/09/18 07/07/18 21:00 History Fluticasone [Flonase] 1 spray NS DAILY 05/28/18 07/09/18 07/07/18 09:00 History Ibuprofen [Ibuprofen 800] 800 mg PO PRN PRN 05/28/18 07/09/1819 09:00 History Levothyroxine Sodium [Synthroid] 112 mcg PO DAILY 05/28/18 07/09/18 07/09/18 06:00 History oxyCODONE [roxiCODONE] 5 mg PO Q6HR PRN #30 tablet 07/09/18 Unknown Rx traMADol [Ultram 50 MG tab] 50 mg PO Q6HR PRN #20 tablet 12/13/18 Unknown Rx Amoxicillin/K Clav Tab [Augmentin 1 tab PO Q12HR #20 tab 01/19/19 Unknown Rx 875 mg] Ibuprofen [Motrin 800 MG tab] 800 mg PO Q8HR PRN #30 tablet 01/19/19 Unknown Rx Pseudoephedrine ER [Sudafed 12 Hr] 120 mg PO BID #8 tablet.er 01/19/19 Unknown Rx Butalb/Acetamin/Caff 50-325-40 1 tab PO Q8HR PRN #12 tablet 01/31/19 Unknown Rx [Fioricet 50-325-40] Ibuprofen [Motrin 600 MG tab] 600 mg PO Q8H PRN #20 tablet 01/31/19 Unknown Rx ED Physical Exam - General Limitations: No Limitations General appearance: alert, in no apparent distress - ENT ENT exam: Present: mucous membranes moist. Absent: TM's normal bilaterally (eustachian tube visualized right TM, no erythema surrounding, left TM normal) - Neck Neck exam: Present: normal inspection - Respiratory Respiratory exam: Present: normal lung sounds bilaterally. Absent: respiratory distress - Cardiovascular Cardiovascular Exam: Present: regular rate, normal rhythm. Absent: systolic murmur, diastolic murmur, rubs, gallop - GI/Abdominal GI/Abdominal exam: Present: soft, normal bowel sounds - Neurological Exam Neurological exam: Present: alert, oriented X3 - Psychiatric Psychiatric exam: Present: normal affect, normal mood - Skin Skin exam: Present: warm, dry, intact, normal color. Absent: rash ED Course Vital Signs 01/31/19 19:56 Temperature 98.2 F Pulse Rate 97 H Respiratory 18 Rate Blood Pressure 124/84 O2 Sat by Pulse 98 Oximetry ED Medical Decision Making - Radiology Data Radiology results: report reviewed CT HEAD WITHOUT CONTRAST INDICATION / CLINICAL INFORMATION: migraine. Right-sided earache. Headache. TECHNIQUE: All CT scans at this location are performed using CT dose reduction for ALARA by means of automated exposure control. COMPARISON: CT dated 10/12/15 FINDINGS: HEMORRHAGE: None. EXTRA-AXIAL SPACES: Normal in size and morphology for the patient's age. VENTRICULAR SYSTEM: Normal in size and morphology for the patient's age. CEREBRAL PARENCHYMA: No significant abnormality. No acute territorial infarct. MIDLINE SHIFT OR HERNIATION: None. CEREBELLUM / BRAINSTEM: No significant abnormality. ORBITS: Normal as visualized. SOFT TISSUES of HEAD: No significant abnormality. CALVARIUM: No significant abnormality. PARANASAL SINUSES / MASTOID AIR CELLS: Normal as visualized. ADDITIONAL FINDINGS: None. IMPRESSION: 1. No acute intracranial abnormality. No significant change. - Medical Decision Making Patient is stable and was examined by me. History of migraine and the eustachian tube to the right ear. CT of head obtained and dictated by radiologist. No acute findings. Given toradol once while in the ER. Start Fioricet and ibuprofen for migraines. 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 No further questions noted by the patient. Discharged home in stable condition. Critical care attestation.: If time is entered above; I have spent that time in minutes in the direct care of this critically ill patient, excluding procedure time. ED Disposition Clinical Impression: Otalgia of right ear Migraine Qualifiers: Migraine type: without aura Status migrainosus presence: with status migrainosus Intractability: not intractable Qualified Code(s): G43.001 - Migraine without aura, not intractable, with status migrainosus Disposition: DC-01 TO HOME OR SELFCARE Is pt being admited?: No Does the pt Need Aspirin: No Condition: Stable Instructions: Migraine Headache (ED) Additional Instructions: Follow-up with ER in her nose and throat doctor as discussed. I have provided pain medication for migraines please take it onset of symptoms. Return to the emergency room if worsening symptoms. Prescriptions: Butalb/Acetamin/Caff 50-325-40 [Fioricet 50-325-40] 1 tab PO Q8HR PRN #12 tablet PRN Reason: Headache Ibuprofen [Motrin 600 MG tab] 600 mg PO Q8H PRN #20 tablet PRN Reason: Pain Referrals: BEREKET RING MD [Primary Care Provider] - 3-5 Days [facility] [Provider Group] - 3-5 Days Forms: Work/School Release Form(ED) Time of Disposition: 23:27
--- NOTE | 2019-01-31 22:47 | Cat Scan Report ---
CT HEAD WITHOUT CONTRAST INDICATION / CLINICAL INFORMATION: migraine. Right-sided earache. Headache. TECHNIQUE: All CT scans at this location are performed using CT dose reduction for ALARA by means of automated e xposure control. COMPARISON: CT dated 10/12/15 FINDINGS: HEMORRHAGE: None. EXTRA-AXIAL SPACES: Normal in size and morphology for the patient's age. VENTRICULAR SYSTEM: Normal in size and morphology for the patient's age. CEREBRAL PARENCHYMA: No significant abnormality. No acute territorial infarct. MIDLINE SHIFT OR HERNIATION: None. CEREBELLUM / BRAINSTEM: No significant abnormality. ORBITS: Normal as visualized. SOFT TISSUES of HEAD: No significant abnormality. CALVARIUM: No significant abnormality. PARANASAL SINUSES / MASTOID AIR CELLS: Normal as visualized. ADDITIONAL FINDINGS: None. IMPRESSION: 1. No acute intracranial abnormality. No significant change. Signer Name: Stephanie Koo MD Signed: 01/31/2019 10:43 PM Workstation Name: [id number]
[2019-01-31] MEDS ORDERED: TORADOL IM ONE (23:21)
== END 2019-02-01 01:17 | disposition home or self-care (01) ==
LOC: ED 19:51
DX: H92.01 Otalgia, right ear (principal); G43.909 Migraine, unspecified, not intractable, without status migrainosus; I10 Essential (primary) hypertension; E11.9 Type 2 diabetes mellitus without complications; M19.90 Unspecified osteoarthritis, unspecified site; F32.9 Major depressive disorder, single episode, unspecified; E78.00 Pure hypercholesterolemia, unspecified; G89.29 Other chronic pain; M54.9 Dorsalgia, unspecified; Z90.49 Acquired absence of other specified parts of digestive tract; Z90.710 Acquired absence of both cervix and uterus; Z79.899 Other long term (current) drug therapy
CPT/HCPCS: 70450; 96372; 99283; J1885

== ENCOUNTER 2019-05-13 18:05 | Emergency (ER) | payer MEDICAID ==
[2019-05-13 19:30] VITALS: BP 117/17
--- NOTE | 2019-05-13 19:37 | Event Note ---
ED Screening Note Date of service: 05/13/19 Time: 19:27 ED Screening Note: 58 y o female presents with lightheaded and dizziness with cp cc of feeling sick and some abd pain pmh: DM on metformin, acid reflux This initial assessment/diagnostic orders/clinical plan/treatment(s) is/are subject to change based on patients health status, clinical progression and re- assessment by fellow clinical providers in the ED. Further treatment and workup at subsequent clinical providers discretion. Patient/guardian urged not to elope from the ED as their condition may be serious if not clinically assessed and managed. Initial orders include: labs,
[2019-05-13 20:33] LABS: Basophils # (Auto) 0.1 K/mm3 (0.0-0.1); Basophils % (Auto) 0.6 % (0.0-1.8); Eosinophils # (Auto) 0.2 K/mm3 (0.0-0.4); Hematocrit 40.9 % (30.3-42.9); Hemoglobin 13.8 gm/dl (10.1-14.3); Lymphocytes # (Auto) 2.4 K/mm3 (1.2-5.4); Lymphocytes % (Auto) 19.5 % (13.4-35.0); Mean Corpuscular HGB Conc 34 % (30-34); Mean Corpuscular Volume 91 fl (79-97); Monocytes % (Auto) 8.4 % (0.0-7.3); Platelet Count 318 K/mm3 (140-440); Red Blood Count 4.51 M/mm3 (3.65-5.03); Red Cell Distribution Width 12.4 % (13.2-15.2)
[2019-05-13 20:43] LABS: BUN/Creatinine Ratio 21; Blood Urea Nitrogen 15 mg/dL (7-17); Calcium 9.5 mg/dL (8.4-10.2); Hemolysis Index 11
[2019-05-13 21:54] LABS: Bilirubin,Urine NEG (Negative); Blood,Urine NEG (Negative); Color,Urine Yellow (Yellow); Mucus,Urine FEW /HPF; Protein,Urine <15 mg/dL mg/dL (Negative); Urobilinogen,Urine < 2.0 mg/dL (<2.0)
== END 2019-05-14 01:22 | disposition left against medical advice (07) ==
LOC: ED 18:05
DX: R42 Dizziness and giddiness (principal); Z53.21 Procedure and treatment not carried out due to patient leaving prior to being seen by health care provider
CPT/HCPCS: 36415; 80048; 81001; 82962; 85025; 93005; 93010

== ENCOUNTER 2019-07-22 10:03 | Outpatient (CLI) | payer MEDICAID ==
--- NOTE | 2019-07-22 12:01 | Cat Scan Report ---
MRI LEFT SHOULDER WITHOUT CONTRAST INDICATION / CLINICAL INFORMATION: M25.512 PAIN IN LEFT SHOULDER. TECHNIQUE: All CT scans at this location are performed using CT dose reduction for ALARA by means of automated e xposure control. Axial CT images were obtained to the left shoulder with coronal and sagittal oblique reconstruction images produced. COMPARISON: None available. FINDINGS: BONES: No fracture or subluxation. No osseous lesion. JOINT SPACE AND CAPSULE: Mild glenohumeral degenerative arthrosis with small marginal osteophytes. No significant joint effusion. ACROMION / A.C. JOINT: Acromioclavicular joint is within normal limits. Mildly prominent anterior acr omial bone spur. SUBACROMIAL/SUBDELTOID SPACE: [id number] amount of fluid/edema in the subacromial space. TENDONS: No definite abnormality. SOFT TISSUES: No significant abnormality. ADDITIONAL FINDINGS: None. IMPRESSION: 1. Mildly prominent anterior acromial bone spur with possible subacromial bursitis. 2. Mild glenohumeral degenerative arthrosis. Signer Name: Stephanie Koo MD Signed: 07/22/2019 11:57 AM Workstation Name: [email or web address]
== END 2019-07-22 10:04 | disposition home or self-care (01) ==
LOC: CT 10:03
PROVIDERS: ATTEND Orthopaedic Surgery
DX: M19.012 Primary osteoarthritis, left shoulder (principal); M25.711 Osteophyte, right shoulder

== ENCOUNTER 2019-09-27 12:01 | Emergency (ER) | payer MEDICAID ==
[2019-09-27 12:08] VITALS: BP 134/91
--- NOTE | 2019-09-27 12:37 | XRay Report ---
CHEST PA AND LATERAL VIEWS INDICATION: CP. COMPARISON: One day prior. FINDINGS: Support devices: None Heart: Normal Lungs/Pleura: No acute pulmonary or pleural findings. IMPRESSION: 1. No significant abnormality. Signer Name: Brady Arana MD Signed: 09/27/2019 12:32 PM Workstation Name: [id number]
[2019-09-27 13:01] LABS: Basophils # (Auto) 0.1 K/mm3 (0.0-0.1); Basophils % (Auto) 0.9 % (0.0-1.8); Eosinophils # (Auto) 0.3 K/mm3 (0.0-0.4); Eosinophils % (Auto) 3.2 % (0.0-4.3); Hematocrit 40.6 % (30.3-42.9); Hemoglobin 14.1 gm/dl (10.1-14.3); Lymphocytes # (Auto) 2.1 K/mm3 (1.2-5.4); Lymphocytes % (Auto) 22.3 % (13.4-35.0); Mean Corpuscular HGB Conc 35 % (30-34); Mean Corpuscular Volume 88 fl (79-97); Monocytes # (Auto) 0.9 K/mm3 (0.0-0.8); Monocytes % (Auto) 9.7 % (0.0-7.3); Platelet Count 309 K/mm3 (140-440); Red Blood Count 4.62 M/mm3 (3.65-5.03); Red Cell Distribution Width 12.3 % (13.2-15.2)
[2019-09-27 13:33] LABS: Alanine Aminotransferase 11 units/L (7-56); Albumin 4.1 g/dL (3.9-5); BUN/Creatinine Ratio 10; Blood Urea Nitrogen 6 mg/dL (7-17); Calcium 9.5 mg/dL (8.4-10.2); Hemolysis Index 6
--- NOTE | 2019-09-27 14:43 | Emergency Department Report ---
- General Chief Complaint: Dyspnea/Respdistress Stated Complaint: CHEST, STOMACH PAIN, DIRREAHA Time Seen by Provider: 09/27/19 14:14 Source: patient Mode of arrival: Ambulatory Limitations: No Limitations - History of Present Illness Initial Comments: 59 year old female with pmhx of DM and HTN presents to ED c/o dry cough. Onset 5 days ago She reports associated post nasal drainage, rhinorrhea, ASHER, sore throat, SOB mainly at rest, CP mainly with cough and bilateral ear pain. She also reports nausea yesterday and since yesterday she has been having loose stools. She state she had low grade temp of about 99 this past friday but non since. She denies any abd pain, UTI symptoms, Wheezing, or any other symptoms at this time. She denies any obvious ill contacts or recent travel. She denies any hx of Heart disease, or lung disease and she does not smoke. She states she has been using flonase, muscinex, and tylenol without much relief. MD Complaint: cough, sore throat, rhinorrhea, nasal congestion, other (Ear pain, SOB, Chest pain with cough) -: days(s) (5 days ago ) - Related Data Home Medications Medication Instructions Recorded Confirmed Last Taken Simvastatin [Zocor TAB] 10 mg PO QHS 07/26/15 07/09/18 07/07/18 21:00 yes lisinopriL [Zestril TAB] 20 mg PO QDAY 07/26/15 07/09/18 07/09/18 06:00 yes metFORMIN [Glucophage] 500 mg PO BID 07/26/15 07/09/18 07/07/18 21:00 yes Fluticasone [Flonase] 1 spray NS DAILY 05/28/18 07/09/18 07/07/18 09:00 Levothyroxine Sodium [Synthroid] 112 mcg PO DAILY 05/28/18 07/09/18 07/09/18 06:00 Previous Rx's Medication Instructions Recorded Last Taken Type Pseudoephedrine ER [Sudafed 12 Hr] 120 mg PO BID #8 tablet.er 01/19/19 Unknown Rx Albuterol INH(or & Nicu Only) 2 puff IH QID PRN #8.5 gram 09/27/19 Unknown Rx [ProAir HFA Inhaler] Amoxicillin [Trimox CAP] 500 mg PO Q8H #30 capsule 09/27/19 Unknown Rx Benzonatate [Tessalon Perles] 100 mg PO Q8HR PRN #30 capsule 09/27/19 Unknown Rx Butalb/Acetamin/Caff 50-325-40 1 tab PO Q8HR PRN #12 tablet 09/27/19 Unknown Rx [Fioricet 50-325-40] Allergies Allergy/AdvReac Type Severity Reaction Status Date / Time No Known Allergies Allergy Verified 09/27/19 12:08 ED Review of Systems ROS: Stated complaint: CHEST, STOMACH PAIN, DIRREAHA Other details as noted in HPI Constitutional: fever. denies: chills, diaphoresis, malaise, weakness ENT: throat pain, congestion. denies: dental pain, hearing loss, epistaxis Respiratory: cough, shortness of breath, SOB at rest. denies: wheezing Cardiovascular: chest pain (with cough). denies: palpitations, dyspnea on exertion, edema, syncope Gastrointestinal: nausea, other (loose stools). denies: abdominal pain, vomiting, diarrhea, constipation, hematemesis, melena Genitourinary: denies: urgency, dysuria, frequency, hematuria, discharge, abnormal menses, dyspareunia Neurological: headache. denies: weakness, numbness, paresthesias, confusion, abnormal gait, vertigo Psychiatric: denies: anxiety, depression ED Past Medical Hx - Past Medical History Previous Medical History?: Yes Hx Hypertension: Yes (X 4 YRS) Hx Diabetes: Yes Hx Arthritis: Yes Hx Headaches / Migraines: Yes (MIGRAINES) Hx Psychiatric Treatment: Yes (DEPRESSION) Hx HIV: No Additional medical history: dengenerative spine disease, gallstone. CHRONIC BACK PAIN, thyroid disease. Elevated cholesterol - Surgical History Past Surgical History?: Yes Hx Cholecystectomy: Yes Hx Appendectomy: Yes Additional Surgical History: right hand surg for carpel tunnel. HYSTERECTOMY. thyroidectomy - Social History Smoking Status: Never Smoker Substance Use Type: None - Medications Home Medications: Home Medications Medication Instructions Recorded Confirmed Last Taken Type Simvastatin [Zocor TAB] 10 mg PO QHS 07/26/15 07/09/18 07/07/18 21:00 History yes lisinopriL [Zestril TAB] 20 mg PO QDAY 07/26/15 07/09/18 07/09/18 06:00 History yes metFORMIN [Glucophage] 500 mg PO BID 07/26/15 07/09/18 07/07/18 21:00 History yes Fluticasone [Flonase] 1 spray NS DAILY 05/28/18 07/09/18 07/07/18 09:00 History Levothyroxine Sodium [Synthroid] 112 mcg PO DAILY 05/28/18 07/09/18 07/09/18 06:00 History Pseudoephedrine ER [Sudafed 12 Hr] 120 mg PO BID #8 tablet.er 01/19/19 Unknown Rx Albuterol INH(or & Nicu Only) 2 puff IH QID PRN #8.5 gram 09/27/19 Unknown Rx [ProAir HFA Inhaler] Amoxicillin [Trimox CAP] 500 mg PO Q8H #30 capsule 09/27/19 Unknown Rx Benzonatate [Tessalon Perles] 100 mg PO Q8HR PRN #30 capsule 09/27/19 Unknown Rx Butalb/Acetamin/Caff 50-325-40 1 tab PO Q8HR PRN #12 tablet 09/27/19 Unknown Rx [Fioricet 50-325-40] ED Physical Exam - General Limitations: No Limitations General appearance: alert, in no apparent distress - Head Head exam: Present: atraumatic, normocephalic, normal inspection - Eye Eye exam: Present: normal appearance, PERRL, EOMI Pupils: Present: normal accommodation - ENT ENT exam: Present: normal exam, normal orophraynx, mucous membranes moist, other (+bilateral maxillary tenderness and frontal sinus tenderness) - Expanded ENT Exam Expanded TM/Canal exam: Erythema: Right TM, Left TM, Effusion: Right TM, Left TM Throat exam: Positive: tonsillar erythema. Negative: tonsillomegaly, tonsillar exudate, R peritonsillar mass, L peritonsillar mass - Neck Neck exam: Present: normal inspection, full ROM. Absent: meningismus - Respiratory Respiratory exam: Present: normal lung sounds bilaterally. Absent: respiratory distress - Cardiovascular Cardiovascular Exam: Present: regular rate, normal rhythm, normal heart sounds - GI/Abdominal GI/Abdominal exam: Present: soft. Absent: distended, tenderness - Neurological Exam Neurological exam: Present: alert, oriented X3, CN II-XII intact, normal gait - Psychiatric Psychiatric exam: Present: normal affect, normal mood - Skin Skin exam: Present: intact ED Course Vital Signs 09/27/19 12:06 Temperature 98.6 F Pulse Rate 95 H Respiratory 18 Rate Blood Pressure 134/91 O2 Sat by Pulse 98 Oximetry ED Medical Decision Making - Lab Data Result diagrams: 09/27/19 12:51 09/27/19 12:51 - EKG Data EKG shows normal: sinus rhythm Rate: normal - EKG Data Interpretation: normal EKG - Radiology Data Radiology results: report reviewed - Medical Decision Making 59 year old female presents to ED c/o dry cough, post nasal drainage, ASHER, rhinnorrhea, nasal congestion, ST, SOB at rest, and CP with cough. She reports l ow grade fever of 99 friday but her temp has been nl since. Pt is well appearing, not toxic, well hydrated and not in any acute pain nor respiratory distress. Her VS reviewed and nl. She is alert, awake and oriented x 3. She is neurologically intact. EKG reviewed and shows nothing acute, labs reviewed and wnl, and cxr nl. The history, exam, diagnostic testing (if any) and current co ndition do not demonstrate an infectious process such as meningitis, severe pneumonia, retropharyngeal abscess, epiglottitis, sepsis or other serious bacterial infection requiring further testing, treatment, consultation, or admission at this time. Discussed lab results, suspected dx and treatment plan with patient. Recommend close f/u with PCP. Informed her if she wants COVID test recommend f/u with PCP or [facility] health department. Recommend she continues to monitor her temperature and quarantine. Pt was stable at time of d/c. Critical care attestation.: If time is entered above; I have spent that time in minutes in the direct care of this critically ill patient, excluding procedure time. ED Disposition Clinical Impression: Acute sinusitis, Bronchospasm, Otitis media Disposition: DC-01 TO HOME OR SELFCARE Is pt being admited?: No Does the pt Need Aspirin: No Condition: Stable Instructions: Sinusitis (ED), Bronchospasm (ED), Otitis Media (ED) Additional Instructions: Recommend that you take medications as prescribed. Recommend lots of fluids, tylenol or motrin for pain or fever (100.5 or higher). If you are concerned about COVID and want testing recommend you contact your PCP or [facility] health department. In the meantime I recommend that you follow the Quarantine protocol. Return to ED if your symptoms worsens. Prescriptions: Butalb/Acetamin/Caff 50-325-40 [Fioricet 50-325-40] 1 tab PO Q8HR PRN #12 tablet PRN Reason: Headache Albuterol INH(or & Nicu Only) [ProAir HFA Inhaler] 2 puff IH QID PRN #8.5 gram PRN Reason: Shortness Of Breath Benzonatate [Tessalon Perles] 100 mg PO Q8HR PRN #30 capsule PRN Reason: Cough Amoxicillin [Trimox CAP] 500 mg PO Q8H #30 capsule Referrals: PRIMARY CARE,MD [Primary Care Provider] - 3-5 Days Time of Disposition: 14:59
== END 2019-09-27 15:13 | disposition home or self-care (01) ==
LOC: ED 12:01
DX: J01.90 Acute sinusitis, unspecified (principal); J98.01 Acute bronchospasm; H66.93 Otitis media, unspecified, bilateral; I10 Essential (primary) hypertension; E11.9 Type 2 diabetes mellitus without complications; K21.9 Gastro-esophageal reflux disease without esophagitis; M19.90 Unspecified osteoarthritis, unspecified site; Z90.49 Acquired absence of other specified parts of digestive tract; Z90.710 Acquired absence of both cervix and uterus; Z79.899 Other long term (current) drug therapy
CPT/HCPCS: 36415; 71046; 80053; 83690; 84484; 85025; 93005; 93010

== ENCOUNTER 2019-10-15 10:52 | Outpatient (CLI) | payer MEDICAID ==
--- NOTE | 2019-10-15 12:41 | Mammography Report ---
DIGITAL SCREENING MAMMOGRAM WITH CAD, 10/15/2019 INDICATION: Routine screening mammography. SCREENING MAMMO TECHNIQUE: Digital bilateral 2D mammography was obtained in the craniocaudal and mediolateral obliq ue projections. This examination was interpreted with the benefit of Computer-Aided Detection analysi s. COMPARISON: 09/04/2015 through 09/09/2018. FINDINGS: Breast Density: The breasts are almost entirely fatty. There is no evidence of dominant mass, suspicious calcifications or architectural distortion in eithe r breast. IMPRESSION: No mammographic evidence of malignancy or significant change. Follow up recommendation: Routine yearly BI-RADS Category 1: Negative. A "normal" or negative report should not discourage follow up or biopsy of a clinically significant f inding. A written summary of these findings will be mailed to the patient. The patient will be entered into a mammography reporting system which will generate a reminder letter for the patient's next appointmen t at the appropriate interval. The [employer] recommends yearly mammograms starting at age 40 and continuing as l nava as a woman is in good health. Breast MRI is recommended for women with an approximate 20-25% or greater lifetime risk of breast cancer, including women with a strong family history of breast or ova dionicio cancer or who have been treated for Hodgkin's disease. Signer Name: To Kumar MD Signed: 10/15/2019 12:37 PM Workstation Name: [id number] [email or web address]
== END 2019-10-15 10:53 | disposition home or self-care (01) ==
LOC: MAMMO 10:52
PROVIDERS: ATTEND Nurse Practitioner Family
DX: Z12.31 Encounter for screening mammogram for malignant neoplasm of breast (principal)
CPT/HCPCS: 77067

== ENCOUNTER 2019-10-25 11:18 | Outpatient (CLI) | payer MEDICAID ==
--- NOTE | 2019-10-25 14:13 | Magnetic Resonance Report ---
MRI LEFT SHOULDER WITHOUT CONTRAST INDICATION / CLINICAL INFORMATION: MAIN: PAIN IN LEFT SHOULDER & LIMITED ROM. PATIENT REFUSED TO REPEAT SAGITTAL, BEST POSSIBLE EXAM.. TECHNIQUE: Multiplanar, multisequence MR images were obtained. COMPARISON: Left shoulder noncontrast CT from 07/22/2019 FINDINGS: No acute osseous abnormality or malalignment. There is mild glenohumeral degenerative arthrosis, with circumferential degenerative fraying of the labrum. No acute-appearing labral tear identified. There is abnormal thickening and intermediate fluid signal in the rotator cuff, primarily in the supr aspinatus tendon region. Mild bursal surface irregularity is seen along the posterior aspect of the s upraspinatus tendon at the 12:00 position near the junction with the infraspinatus tendon. There is a lso moderate volume subacromial/subdeltoid bursal fluid with associated synovitis. The biceps tendon is intact. IMPRESSION: 1. Rotator cuff tendinosis with low-grade partial-thickness bursal surface tearing of the posterior f ibers of the supraspinatus tendon in the region of the critical zone directly underlying the tip of t he acromion. Moderate associated subacromial/subdeltoid bursitis. 2. Circumferential fraying of the labrum without acute tear. Report dictated by: Matheus Treviño MD Report dictated on: 10/25/2019 12:56 PM I have reviewed the images, agree with this report, and edited this report as needed. Signer Name: Aquiles Wright MD Signed: 10/25/2019 2:08 PM Workstation Name: [id number]
== END 2019-10-25 11:19 | disposition home or self-care (01) ==
LOC: MRI 11:18
PROVIDERS: ATTEND Orthopaedic Surgery
DX: S46.012A Strain of muscle(s) and tendon(s) of the rotator cuff of left shoulder, initial encounter (principal); M75.82 Other shoulder lesions, left shoulder; X58.XXXA Exposure to other specified factors, initial encounter; Y93.89 Activity, other specified; Y92.89 Other specified places as the place of occurrence of the external cause; Y99.8 Other external cause status

== ENCOUNTER 2020-04-10 13:57 | Outpatient (CLI) | payer MEDICAID ==
--- NOTE | 2020-04-10 15:32 | Magnetic Resonance Report ---
MR cervical spine wo con INDICATION / CLINICAL INFORMATION: Cervical radiculopathy. TECHNIQUE: Multisequence, multiplanar images of the cervical spine were obtained. COMPARISON: None available. FINDINGS: ALIGNMENT: Normal alignment. VERTEBRAE:No aggressive osseous marrow signal. Vertebral body heights are preserved. SPINAL CORD: No abnormal cord signal [id number] ANALYSIS: C2-C3: No significant spinal canal stenosis. No significant foraminal narrowing. C3-C4: Small disc osteophyte complex. No significant spinal canal stenosis. No significant foraminal narrowing. C4-C5: Asymmetric to right disc osteophyte compresses. No significant spinal canal stenosis. Mild rig ht foraminal narrowing. No significant left foraminal stenosis. C5-C6: No significant spinal canal stenosis. Uncovertebral and facet arthropathy resulting in moderat e right foraminal narrowing. No significant left foraminal narrowing. C6-C7: No significant spinal canal stenosis. Uncovertebral and facet arthropathy resulting in moderat e right and mild left foraminal narrowing. C7-T1: No significant spinal canal stenosis. No significant foraminal narrowing. PARASPINAL SOFT TISSUES: No significant abnormality. ADDITIONAL FINDINGS: None. IMPRESSION: 1. Mild multilevel spondylosis without high-grade spinal canal stenosis at any level. There is modera te right C5-C6 and C6-C7 foraminal narrowing. CERVICAL GRADING DEFINITIONS FOR THE PURPOSES OF THIS REPORT: Cervical canal stenosis: No stenosis: No significant attenuation of the CSF spaces Mild stenosis: Attenuation or effacement of the ventral CSF Moderate stenosis: Effacement of both the ventral and dorsal CSF, cord flattening, but so me CSF remaining Severe stenosis: Effacement of all CSF, cord compression Cervical neural foraminal stenosis (Pia et al. Lao J Radiol. 2015 Apr-May;16(6):1294-302): No stenosis: No attenuation of the fat in the foramen Mild stenosis: Narrowest point of the foramen is larger than the extraforaminal nerve Moderate stenosis: Narrowest point of the foramen remains greater than 50% of the caliber of the extraforaminal nerve Severe stenosis: Narrowest point of the foramen is less than 50% of the caliber of th e extraforaminal nerve Signer Name: Fer Brice MD Signed: 04/10/2020 3:28 PM Workstation Name: [id number]
== END 2020-04-10 13:58 | disposition home or self-care (01) ==
LOC: MRI 13:57
DX: M48.02 Spinal stenosis, cervical region (principal); M47.812 Spondylosis without myelopathy or radiculopathy, cervical region; M53.1 Cervicobrachial syndrome; M54.12 Radiculopathy, cervical region
CPT/HCPCS: 72141

== ENCOUNTER 2020-08-12 20:43 | Emergency (ER) | payer MEDICAID ==
[2020-08-12 20:49] VITALS: BP 150/86
[2020-08-12] MEDS ORDERED: ASPIRIN 81 MG TAB CHEW PO ONE (20:50)
--- NOTE | 2020-08-12 20:52 | Event Note ---
ED Screening Note ED Screening Note: 60-year-old F Lithuanian female past medical history of hypertension and diabetes but she has not checked in the last 3 to 4 days resents emerged department complaining of a 3-day history of chest pain associated with presyncope and vague shortness of breath off and on since the onset. She reports no hemoptysis symptoms hematochezia, no fever, chills, sweats but has had a cough with variable productivity. Examination patient is ambulatory and no acute respiratory distress speaks in full sentences able to get on and off bed on her own power with no limitations. Vital signs stable neuro is intact This initial assessment/diagnostic orders/clinical plan/treatment(s) is/are subject to change based on patients health status, clinical progression and re- assessment by fellow clinical providers in the ED. Further treatment and workup at subsequent clinical providers discretion. Patient/guardian urged not to elope from the ED as their condition may be serious if not clinically assessed and managed. Initial orders include: Cardiac work-up
[2020-08-12 21:11] LABS: Basophils # (Auto) 0.1 K/mm3 (0.0-0.1); Basophils % (Auto) 0.6 % (0.0-1.8); Eosinophils # (Auto) 0.3 K/mm3 (0.0-0.4); Eosinophils % (Auto) 2.3 % (0.0-4.3); Hematocrit 40.3 % (30.3-42.9); Hemoglobin 13.8 gm/dl (10.1-14.3); Lymphocytes # (Auto) 2.6 K/mm3 (1.2-5.4); Lymphocytes % (Auto) 24.2 % (13.4-35.0); Mean Corpuscular HGB Conc 34 % (30-34); Mean Corpuscular Volume 91 fl (79-97); Monocytes # (Auto) 0.9 K/mm3 (0.0-0.8); Monocytes % (Auto) 8.6 % (0.0-7.3); Platelet Count 318 K/mm3 (140-440); Red Blood Count 4.43 M/mm3 (3.65-5.03); Red Cell Distribution Width 12.5 % (13.2-15.2)
[2020-08-12 21:27] LABS: Alanine Aminotransferase 16 units/L (7-56); Albumin 4.2 g/dL (3.9-5); Blood Urea Nitrogen 10 mg/dL (7-17); Calcium 9.2 mg/dL (8.4-10.2); Hemolysis Index 5
[2020-08-12 21:28] LABS: BUN/Creatinine Ratio 14
--- NOTE | 2020-08-12 21:32 | XRay Report ---
CHEST 2 VIEWS INDICATION / CLINICAL INFORMATION: Chest Pain. COMPARISON: 09/27/2019 FINDINGS: SUPPORT DEVICES: None. HEART / MEDIASTINUM: No significant abnormality. LUNGS / PLEURA: No significant pulmonary or pleural abnormality. No pneumothorax. ADDITIONAL FINDINGS: No significant additional findings. IMPRESSION: 1. No acute findings. Signer Name: Luis An MD Signed: 08/12/2020 9:27 PM Workstation Name: [email or web address]
--- NOTE | 2020-08-12 21:43 | Emergency Department Report ---
ED Chest Pain HPI - General Chief Complaint: Chest Pain Stated Complaint: CHEST PAIN Time Seen by Provider: 08/12/20 21:33 Source: patient Mode of arrival: Ambulatory Limitations: No Limitations - History of Present Illness Initial Comments: Patient is a 60-year-old F Andorran female with a past medical history of hypertension diabetes type 2 history of cholecystectomy and appendectomy who is presenting with 3 to 4 days of intermittent chest discomfort. States is hot warm sensation that is associate with some nausea and mild shortness of breath in the center chest. States that occurs at random but she states it is worse at night and in the morning. States that last less than 60 seconds at a time. She denies exertional or pleuritic component. States there is no cough cold congestion fevers chills. - Related Data Home Medications Medication Instructions Recorded Confirmed Last Taken Simvastatin (Nf) [Zocor TAB] 10 mg PO QHS 07/26/15 07/09/18 07/07/18 21:00 yes lisinopriL [Zestril TAB] 20 mg PO QDAY 07/26/15 07/09/18 07/09/18 06:00 yes metFORMIN [Glucophage] 500 mg PO BID 07/26/15 07/09/18 07/07/18 21:00 yes Fluticasone [Flonase] 1 spray NS DAILY 05/28/18 07/09/18 07/07/18 09:00 Levothyroxine Sodium [Synthroid] 112 mcg PO DAILY 05/28/18 07/09/18 07/09/18 06:00 Previous Rx's Medication Instructions Recorded Last Taken Type Pseudoephedrine ER [Sudafed 12 Hr] 120 mg PO BID #8 tablet.er 01/19/19 Unknown Rx Albuterol Mdi (or & Nicu Only) 2 puff IH QID PRN #8.5 gram 09/27/19 Unknown Rx [ProAir HFA Inhaler] Amoxicillin [Trimox CAP] 500 mg PO Q8H #30 capsule 09/27/19 Unknown Rx Benzonatate [Tessalon Perles] 100 mg PO Q8HR PRN #30 capsule 09/27/19 Unknown Rx Butalb/Acetamin/Caff 50-325-40 1 tab PO Q8HR PRN #12 tablet 09/27/19 Unknown Rx [Fioricet 50-325-40] Amoxicillin/K Clav Tab [Augmentin 1 tab PO Q12HR #20 tab 01/17/20 Unknown Rx 875 mg] Pantoprazole [Protonix] 40 mg PO QDAY #30 tablet 08/12/20 Unknown Rx Allergies Allergy/AdvReac Type Severity Reaction Status Date / Time No Known Allergies Allergy Verified 09/27/19 12:08 Heart Score - HEART Score History: Slightly suspicious EKG: Normal Age: 45-65 Risk factors: 1-2 risk factors Troponin: < normal limit HEART Score: 2 ED Review of Systems ROS: Stated complaint: CHEST PAIN Other details as noted in HPI Comment: All other systems reviewed and negative ED Past Medical Hx - Past Medical History Previous Medical History?: Yes Hx Hypertension: Yes (X 4 YRS) Hx Diabetes: Yes Hx Arthritis: Yes Hx Headaches / Migraines: Yes (MIGRAINES) Hx Psychiatric Treatment: Yes (DEPRESSION) Hx HIV: No Additional medical history: dengenerative spine disease, gallstone. CHRONIC BACK PAIN, thyroid disease. Elevated cholesterol - Surgical History Past Surgical History?: Yes Hx Cholecystectomy: Yes Hx Appendectomy: Yes Additional Surgical History: right hand surg for carpel tunnel. HYSTERECTOMY. thyroidectomy - Social History Smoking Status: Never Smoker Substance Use Type: None - Medications Home Medications: Home Medications Medication Instructions Recorded Confirmed Last Taken Type Simvastatin (Nf) [Zocor TAB] 10 mg PO QHS 07/26/15 07/09/18 07/07/18 21:00 History yes lisinopriL [Zestril TAB] 20 mg PO QDAY 07/26/15 07/09/18 07/09/18 06:00 History yes metFORMIN [Glucophage] 500 mg PO BID 07/26/15 07/09/18 07/07/18 21:00 History yes Fluticasone [Flonase] 1 spray NS DAILY 05/28/18 07/09/18 07/07/18 09:00 History Levothyroxine Sodium [Synthroid] 112 mcg PO DAILY 05/28/18 07/09/18 07/09/18 06:00 History Pseudoephedrine ER [Sudafed 12 Hr] 120 mg PO BID #8 tablet.er 01/19/19 Unknown Rx Albuterol Mdi (or & Nicu Only) 2 puff IH QID PRN #8.5 gram 09/27/19 Unknown Rx [ProAir HFA Inhaler] Amoxicillin [Trimox CAP] 500 mg PO Q8H #30 capsule 09/27/19 Unknown Rx Benzonatate [Tessalon Perles] 100 mg PO Q8HR PRN #30 capsule 09/27/19 Unknown Rx Butalb/Acetamin/Caff 50-325-40 1 tab PO Q8HR PRN #12 tablet 09/27/19 Unknown Rx [Fioricet 50-325-40] Amoxicillin/K Clav Tab [Augmentin 1 tab PO Q12HR #20 tab 01/17/20 Unknown Rx 875 mg] Pantoprazole [Protonix] 40 mg PO QDAY #30 tablet 08/12/20 Unknown Rx ED Physical Exam - General Limitations: No Limitations General appearance: alert, in no apparent distress - Head Head exam: Present: atraumatic, normocephalic - Eye Eye exam: Present: normal appearance - ENT ENT exam: Present: mucous membranes moist - Neck Neck exam: Present: normal inspection - Respiratory Respiratory exam: Present: normal lung sounds bilaterally. Absent: respiratory distress, wheezes, rales, rhonchi, chest wall tenderness - Cardiovascular Cardiovascular Exam: Present: regular rate, normal rhythm, normal heart sounds. Absent: systolic murmur, diastolic murmur, rubs, gallop - GI/Abdominal GI/Abdominal exam: Present: soft, normal bowel sounds. Absent: distended, tenderness, guarding, rebound - Extremities Exam Extremities exam: Present: normal inspection - Back Exam Back exam: Present: normal inspection - Neurological Exam Neurological exam: Present: alert, oriented X3 - Psychiatric Psychiatric exam: Present: normal affect, normal mood - Skin Skin exam: Present: warm, dry, intact, normal color. Absent: rash ED Course Vital Signs 08/12/20 20:47 Temperature 97.8 F Pulse Rate 76 Respiratory 18 Rate Blood Pressure 150/86 O2 Sat by Pulse 100 Oximetry DARON score - Daron Score Age > 65: (0) No Aspirin use within the Past 7 Days: (0) No 3 or more CAD Risk Factors: (1) Yes 2 or more Angina events in past 24 hrs: (1) Yes Known CAD with more than 50% Stenosis: (0) No Elevated Cardiac Markers: (0) No ST Deviation Greater than 0.5mm: (0) No DARON Score: 2 ED Medical Decision Making - Lab Data Result diagrams: 08/12/20 20:59 02/20/21 20:59 Laboratory Results - last 24 hr 08/12/20 08/12/20 20:59 20:59 WBC 10.9 RBC 4.43 Hgb 13.8 Hct 40.3 MCV 91 MCH 31 MCHC 34 RDW 12.5 L Plt Count 318 Lymph % (Auto) 24.2 [place] % (Auto) 8.6 H Eos % (Auto) 2.3 Baso % (Auto) 0.6 Lymph # (Auto) 2.6 [place] # (Auto) 0.9 H Eos # (Auto) 0.3 Baso # (Auto) 0.1 Seg Neutrophils % 64.3 Seg Neutrophils # 7.0 Sodium 138 Potassium 3.7 Chloride 102.7 Carbon Dioxide 26 Anion Gap 13 BUN 10 Creatinine 0.7 Estimated GFR > 60 BUN/Creatinine Ratio 14 Glucose 107 H Calcium 9.2 Total Bilirubin < 0.20 AST 15 ALT 16 Alkaline Phosphatase 114 Troponin T < 0.010 Total Protein 7.0 Albumin 4.2 Albumin/Globulin Ratio 1.5 - EKG Data -: EKG Interpreted by [place] EKG shows normal: sinus rhythm, axis, intervals, QRS complexes, ST-T waves Rate: normal - EKG Data Interpretation: normal EKG - Radiology Data [facility] [address] [place] [address] XRay Report Signed Patient: LA NENA MENA MR#: [id number] : 1960 Acct:[id number] Age/Sex: 60 / F ADM Date: 08/12/20 Loc: ED Attending Dr: Ordering Physician: FERNY FRANKLIN Date of Service: 08/12/20 Procedure(s): XR chest routine 2V Accession Number(s): [id number] cc: FERNY FRANKLIN Fluoro Time In Minutes: CHEST 2 VIEWS INDICATION / CLINICAL INFORMATION: Chest Pain. COMPARISON: 09/27/2019 FINDINGS: SUPPORT DEVICES: None. HEART / MEDIASTINUM: No significant abnormality. LUNGS / PLEURA: No significant pulmonary or pleural abnormality. No pneumothorax. ADDITIONAL FINDINGS: No significant additional findings. IMPRESSION: 1. No acute findings. Signer Name: Luis An MD Signed: 08/12/2020 9:27 PM Workstation Name: [email or web address] - Medical Decision Making Patient symptoms most closely consistent with GERD. Troponin is normal. Patient has been having symptoms for several days and I do not believe that the patient will need multiple enzymes. Chest x-ray EKG also within normal limits. Patient be started on omeprazole and be discharged home. Critical care attestation.: If time is entered above; I have spent that time in minutes in the direct care of this critically ill patient, excluding procedure time. ED Disposition Clinical Impression: GERD (gastroesophageal reflux disease) Qualifiers: Esophagitis presence: without esophagitis Qualified Code(s): K21.9 - Gastro- esophageal reflux disease without esophagitis Disposition: DC-01 TO HOME OR SELFCARE Is pt being admited?: No Does the pt Need Aspirin: No Condition: Stable Instructions: Gastroesophageal Reflux Disease, Adult, [id number] Referrals: PRIMARY CARE, [Primary Care Provider] - 3-5 Days Time of Disposition: 21:43
== END 2020-08-12 21:56 | disposition home or self-care (01) ==
LOC: ED 20:43
DX: K21.9 Gastro-esophageal reflux disease without esophagitis (principal); I10 Essential (primary) hypertension; E11.9 Type 2 diabetes mellitus without complications; M19.91 Primary osteoarthritis, unspecified site; G43.909 Migraine, unspecified, not intractable, without status migrainosus; F32.9 Major depressive disorder, single episode, unspecified; Z79.2 Long term (current) use of antibiotics; Z79.84 Long term (current) use of oral hypoglycemic drugs; Z79.899 Other long term (current) drug therapy
CPT/HCPCS: 36415; 71046; 80053; 84484; 85025; 93005

== ENCOUNTER 2020-09-19 08:18 | Outpatient (CLI) | payer MEDICAID ==
--- NOTE | 2020-09-19 09:12 | Mammography Report ---
DIGITAL SCREENING MAMMOGRAM WITH CAD, 09/19/2020 CLINICAL INFORMATION / INDICATION: Routine screening mammography. TECHNIQUE: Digital bilateral 2D mammography was obtained in the craniocaudal and mediolateral obliqu e projections. This examination was interpreted with the benefit of Computer-Aided Detection analysis . COMPARISON: 12/01/2019, 10/15/2019, 09/09/2018, 09/17/2016 FINDINGS: Breast Density: There are scattered areas of fibroglandular density. No dominant mass, suspicious calcifications, or architectural distortion in either breast. IMPRESSION: No mammographic evidence of malignancy. Please note that the patient did indicate a histo ry of occasional intermittent bilateral breast pain for one year on her clinical information sheet. C linical correlation is recommended for the patient's breast pain. Follow up recommendation: Routine yearly BI-RADS Category 1: Negative. A "normal" or negative report should not discourage follow up or biopsy of a clinically significant f inding. A written summary of these findings will be mailed to the patient. The patient will be entered into a mammography reporting system which will generate a reminder letter for the patient's next appointmen t at the appropriate interval. The [employer] recommends yearly mammograms starting at age 40 and continuing as l nava as a woman is in good health. Breast MRI is recommended for women with an approximate 20-25% or greater lifetime risk of breast cancer, including women with a strong family history of breast or ova dionicio cancer or who have been treated for Hodgkin's disease. Signer Name: Pamela Cheng MD Signed: 09/19/2020 9:07 AM Workstation Name: [id number]
== END 2020-09-19 08:19 | disposition home or self-care (01) ==
LOC: SPVWC 08:18
PROVIDERS: ATTEND Surgery
DX: R92.8 Other abnormal and inconclusive findings on diagnostic imaging of breast (principal)
CPT/HCPCS: 77066

== ENCOUNTER 2020-11-09 08:49 | Emergency (ER) | payer MEDICAID ==
[2020-11-09 09:11] VITALS: BP 124/79
--- NOTE | 2020-11-09 10:59 | Emergency Department Report ---
ED Extremity Problem HPI - General Chief complaint: Extremity Problem,Nontraumatic Stated complaint: LT SHOULDER PAIN Time Seen by Provider: 11/09/20 10:53 Source: patient Mode of arrival: Ambulatory Limitations: No Limitations - History of Present Illness Initial comments: Patient is a 60-year-old female presents emergency room complaints of left shoul leti pain that exacerbated over the last two months. She states that the pain increases at night. Patient reports that she has a history of a tear to her right rotator cuff. Patient has had this left shoulder pain for some time. During chart review patient saw Dr. Cano, orthopedic and had an MRI performed on 10/25/2019, a year ago, which showed rotator cuff tendinosis. Patient reports that she last had a steroid injection in her shoulder approximately 1 month ago. She has had no acute fall or injury. She denies any numbness or weakness. She states that she has pain with range of motion and lifting her arm above her head. She denies any medication allergies. - Related Data Home Medications Medication Instructions Recorded Confirmed Last Taken Simvastatin (Nf) [Zocor TAB] 10 mg PO QHS 07/26/15 07/09/18 07/07/18 21:00 yes lisinopriL [Zestril TAB] 20 mg PO QDAY 07/26/15 07/09/18 07/09/18 06:00 yes metFORMIN [Glucophage] 500 mg PO BID 07/26/15 07/09/18 07/07/18 21:00 yes Fluticasone [Flonase] 1 spray NS DAILY 05/28/18 07/09/18 07/07/18 09:00 Levothyroxine Sodium [Synthroid] 112 mcg PO DAILY 05/28/18 07/09/18 07/09/18 06:00 Previous Rx's Medication Instructions Recorded Last Taken Type Pseudoephedrine ER [Sudafed 12 Hr] 120 mg PO BID #8 tablet.er 01/19/19 Unknown Rx Albuterol Mdi (or & Nicu Only) 2 puff IH QID PRN #8.5 gram 09/27/19 Unknown Rx [ProAir HFA Inhaler] Amoxicillin [Trimox CAP] 500 mg PO Q8H #30 capsule 09/27/19 Unknown Rx Benzonatate [Tessalon Perles] 100 mg PO Q8HR PRN #30 capsule 09/27/19 Unknown Rx Butalb/Acetamin/Caff 50-325-40 1 tab PO Q8HR PRN #12 tablet 09/27/19 Unknown Rx [Fioricet 50-325-40] Amoxicillin/K Clav Tab [Augmentin 1 tab PO Q12HR #20 tab 01/17/20 Unknown Rx 875 mg] Pantoprazole [Protonix] 40 mg PO QDAY #30 tablet 08/12/20 Unknown Rx Diclofenac Sodium [Voltaren 1 applicatio TP BID #20 gel..gram. 11/09/20 Unknown Rx Arthritis Pain] Menthol/Camphor [[place] 1 applicatio TP BID #18 oint...g. 11/09/20 Unknown Rx Ointment] Naproxen [EC-Naprosyn] 375 mg PO BID PRN #14 tablet.dr 11/09/20 Unknown Rx methOCARBAMOL [Robaxin TAB] 500 mg PO BID PRN #14 tab 11/09/20 Unknown Rx Allergies Allergy/AdvReac Type Severity Reaction Status Date / Time No Known Allergies Allergy Verified 09/27/19 12:08 ED Review of Systems ROS: Stated complaint: LT SHOULDER PAIN Other details as noted in HPI Comment: All other systems reviewed and negative ED Past Medical Hx - Past Medical History Previous Medical History?: Yes Hx Hypertension: Yes (X 4 YRS) Hx Diabetes: Yes Hx Arthritis: Yes Hx Headaches / Migraines: Yes (MIGRAINES) Hx Psychiatric Treatment: Yes (DEPRESSION) Hx HIV: No Additional medical history: dengenerative spine disease, gallstone. CHRONIC BA CK PAIN, thyroid disease. Elevated cholesterol - Surgical History Past Surgical History?: Yes Hx Cholecystectomy: Yes Hx Appendectomy: Yes Additional Surgical History: right hand surg for carpel tunnel. HYSTERECTOMY. thyroidectomy - Social History Smoking Status: Never Smoker Substance Use Type: None - Medications Home Medications: Home Medications Medication Instructions Recorded Confirmed Last Taken Type Simvastatin (Nf) [Zocor TAB] 10 mg PO QHS 07/26/15 07/09/18 07/07/18 21:00 History yes lisinopriL [Zestril TAB] 20 mg PO QDAY 07/26/15 07/09/18 07/09/18 06:00 History yes metFORMIN [Glucophage] 500 mg PO BID 07/26/15 07/09/18 07/07/18 21:00 History yes Fluticasone [Flonase] 1 spray NS DAILY 05/28/18 07/09/18 07/07/18 09:00 History Levothyroxine Sodium [Synthroid] 112 mcg PO DAILY 05/28/18 07/09/18 07/09/18 06:00 History Pseudoephedrine ER [Sudafed 12 Hr] 120 mg PO BID #8 tablet.er 01/19/19 Unknown Rx Albuterol Mdi (or & Nicu Only) 2 puff IH QID PRN #8.5 gram 09/27/19 Unknown Rx [ProAir HFA Inhaler] Amoxicillin [Trimox CAP] 500 mg PO Q8H #30 capsule 09/27/19 Unknown Rx Benzonatate [Tessalon Perles] 100 mg PO Q8HR PRN #30 capsule 09/27/19 Unknown Rx Butalb/Acetamin/Caff 50-325-40 1 tab PO Q8HR PRN #12 tablet 09/27/19 Unknown Rx [Fioricet 50-325-40] Amoxicillin/K Clav Tab [Augmentin 1 tab PO Q12HR #20 tab 01/17/20 Unknown Rx 875 mg] Pantoprazole [Protonix] 40 mg PO QDAY #30 tablet 08/12/20 Unknown Rx Diclofenac Sodium [Voltaren 1 applicatio TP BID #20 gel..gram. 11/09/20 Unknown Rx Arthritis Pain] Menthol/Camphor [[place] 1 applicatio TP BID #18 oint...g. 11/09/20 Unknown Rx Ointment] Naproxen [EC-Naprosyn] 375 mg PO BID PRN #14 tablet.dr 11/09/20 Unknown Rx methOCARBAMOL [Robaxin TAB] 500 mg PO BID PRN #14 tab 11/09/20 Unknown Rx ED Physical Exam - General Limitations: No Limitations General appearance: alert, in no apparent distress - Head Head exam: Present: atraumatic, normocephalic - Eye Eye exam: Present: normal appearance - ENT ENT exam: Present: mucous membranes moist - Respiratory Respiratory exam: Absent: respiratory distress, accessory muscle use - Extremities Exam Extremities exam: Present: tenderness (no clavicular ttp, neurovascularly intact with strong radial pulse), other (ttp to the left deltoid region and the distal end of the left shoulder, no AC joint ttp, pt is able to lift the shoulder to approximately 90 degrees and then experiences pain, no bony ttp of the LUE, no deformity, no edema, no skin changes, no skin tenting, no sulcus sign, clavicles are equal) - Neurological Exam Neurological exam: Present: alert, oriented X3 - Psychiatric Psychiatric exam: Present: normal affect, normal mood - Skin Skin exam: Present: warm, dry, intact ED Course Vital Signs 11/09/20 09:08 Temperature 98.4 F Pulse Rate 82 Respiratory 18 Rate Blood Pressure 124/79 O2 Sat by Pulse 100 Oximetry ED Medical Decision Making - Medical Decision Making Patient is a 60-year-old female presents emergency room complaints of left shoulder pain that exacerbated over the last two months. She states that the pain increases at night. Patient reports that she has a history of a tear to her right rotator cuff. Patient has had this left shoulder pain for some time. During chart review patient saw Dr. Cano orthopedic and had an MRI performed on 10/25/2019, a year ago, which showed rotator cuff tendinosis. Patient reports that she last had a steroid injection in her shoulder approximately 1 month ago. She has had no acute fall or injury. She denies any numbness or weakness. She states that she has pain with range of motion and lifting her arm above her head. She denies any medication allergies. Vitals are normal. on exam: ttp to the left deltoid region and the distal end of the left shoulder, no AC joint ttp, pt is able to lift the shoulder to approximately 90 degrees and then experiences pain, no bony ttp of the LUE, no deformity, no edema, no skin changes, no skin tenting, no sulcus sign, clavicles are equal, no clavicular ttp, neurovascularly intact with strong radial pulse. Patient has no acute trauma, she has no clinical signs of acute fracture or dislocation. Patient has had ongoing shoulder pain and is currently seeing an orthopedic doctor and just had an MRI performed last year. Patient given prescription for medications. discussed the importance of orthopedic follow up. Advised patient Please use medication as prescribed. Please separate using the ointments by at least [address] machinery while taking muscle relaxer Robaxin. May use ice pack for 15 minutes at a time, heating pad for 15 minutes at a time, rest, epsom salt bath. Do not use heat or ice while wearing the ointments. Follow-up with orthopedic doctor. Return to emergency room for any new or worsening symptoms. Critical care attestation.: If time is entered above; I have spent that time in minutes in the direct care of this critically ill patient, excluding procedure time. ED Disposition Clinical Impression: Shoulder pain Qualifiers: Chronicity: chronic Laterality: left Qualified Code(s): M25.512 - Pain in left shoulder Disposition: DC- TO HOME OR SELFCARE Is pt being admited?: No Does the pt Need Aspirin: No Condition: Stable Instructions: Shoulder Pain, Tendinitis Additional Instructions: Please use medication as prescribed. Please separate using the ointments by at least [address] machinery while taking muscle relaxer Robaxin. May use ice pack for 15 minutes at a time, heating pad for 15 minutes at a time, rest, epsom salt bath. Do not use heat or ice while wearing the ointments. Follow-up with orthopedic doctor. Return to emergency room for any new or worsening symptoms. Prescriptions: Naproxen [EC-Naprosyn] 375 mg PO BID PRN #14 tablet.dr PRN Reason: pain methOCARBAMOL [Robaxin TAB] 500 mg PO BID PRN #14 tab PRN Reason: muscle spasm/pain Menthol/Camphor [[place] Ointment] 1 applicatio TP BID #18 oint...g. Diclofenac Sodium [Voltaren Arthritis Pain] 1 applicatio TP BID #20 gel..gram. Referrals: BRAULIO CANO MD [Staff Physician] - 2-3 Days Time of Disposition: 11:05 Print Language: UPPER SORBIAN
== END 2020-11-09 12:00 | disposition home or self-care (01) ==
LOC: ED 08:49
DX: M25.512 Pain in left shoulder (principal); I10 Essential (primary) hypertension; E11.9 Type 2 diabetes mellitus without complications; M19.91 Primary osteoarthritis, unspecified site; G43.909 Migraine, unspecified, not intractable, without status migrainosus; F32.9 Major depressive disorder, single episode, unspecified; Z90.49 Acquired absence of other specified parts of digestive tract; Z98.890 Other specified postprocedural states; Z79.84 Long term (current) use of oral hypoglycemic drugs; Z79.899 Other long term (current) drug therapy
CPT/HCPCS: 99281

== ENCOUNTER 2020-12-19 10:51 | Outpatient (CLI) | payer MEDICAID ==
--- NOTE | 2020-12-19 12:42 | Magnetic Resonance Report ---
MRI BREAST BILATERAL WITH AND WITHOUT CONTRAST, 12/19/2020 CLINICAL INFORMATION / INDICATION: Bilateral mastodynia. TECHNIQUE: Axial T1 and T2-weighted fat sat images were obtained precontrast. Gadolinium-based contra st was injected intravenously and serial axial T1 weighted images with fat saturation were obtained. 3-D MIP projections, kinetic analysis, and subtraction imaging were utilized to evaluate. A dedicated 8-channel breast coil was used for image acquisition. COMPARISON: Bilateral diagnostic mammogram from 09/19/2020 FINDINGS: BREAST DENSITY: Scattered areas of fibroglandular density. BACKGROUND ENHANCEMENT: Low level background enhancement within both breasts. RIGHT BREAST: No dominant mass or suspicious area of enhancement in the right breast. LEFT BREAST: In the 12:00 position middle depth of the left breast is an area of irregularly shaped n onmass enhancement seen on image 508 of series 6 measuring up to 8 mm. No mass or other area of suspi cious enhancement is identified. AXILLAE: No pathologically enlarged axillary lymph nodes. ADDITIONAL FINDINGS: Limited imaging of the thorax and upper abdomen demonstrates no focal abnormalit y. IMPRESSION: Indeterminate area of nonmass enhancement in the left breast as above. A limited left breast ultrasou nd and diagnostic left mammogram with spot compression views would be helpful for further evaluation. If no correlate is seen on either of these modalities, biopsy with MRI guidance may be indicated. Follow up recommendation: Special View: Spot BI-RADS Category 0: Incomplete. Needs additional imaging evaluation and/or prior mammograms for nora rison. Signer Name: Deangelo Raymundo MD Signed: 12/19/2020 12:38 PM Workstation Name: [id number]
== END 2020-12-19 10:52 | disposition home or self-care (01) ==
LOC: SPVIMAG 10:51
PROVIDERS: ATTEND Surgery
DX: N63.21 Unspecified lump in the left breast, upper outer quadrant (principal); N60.11 Diffuse cystic mastopathy of right breast; N60.12 Diffuse cystic mastopathy of left breast; N64.4 Mastodynia
CPT/HCPCS: A9575; C8908; 77049

== ENCOUNTER 2021-01-17 10:58 | Outpatient (CLI) | payer MEDICAID ==
--- NOTE | 2021-01-18 11:16 | Ultrasound Report ---
LEFT DIGITAL DIAGNOSTIC MAMMOGRAM WITH CAD WITH TOMOSYNTHESIS, 01/17/2021 LEFT LIMITED BREAST ULTRASOUND CLINICAL INFORMATION / INDICATION: Recent breast MRI found area of nonmass enhancement in the left br east at 12:00. TECHNIQUE: Digital left mammographic imaging was performed. Limited ultrasound was performed. This ex amination was interpreted with the benefit of Computer-Aided Detection (CAD) analysis. COMPARISON: Recent breast MRI, 12/19/2020 as well as multiple prior left mammograms dating back to . FINDINGS: Breast Density: There are scattered areas of fibroglandular density. MAMMOGRAPHIC FINDINGS: In the superior posterior left breast, there is a small focal asymmetry that d oes appear to correlate with MRI abnormality. However this focal asymmetry has been present since and appears grossly unchanged in appearance. Overall, the mammogram is unremarkable and stable in a ppearance compared with older exams. ULTRASOUND FINDINGS: Targeted ultrasound evaluation was performed of the area of interest. Sonograp hic evaluation of the left breast in the superior aspect and upper outer aspect, is unremarkable. No mass, shadowing, or cyst is identified. There is no sonographic correlate for the mammographic or MRI abnormality. IMPRESSION: There is a small focal asymmetry in the left superior breast that does appear to correlat e with recently identified MRI abnormality. However this focal asymmetry has been stable mammographic ally for several years indicating that it is highly likely benign. I would recommend follow-up left M RI exam in 6 months to ensure stability of the MRI abnormality. Follow up recommendation: Short term follow up in 6 months. BI-RADS Category 3: Probably Benign. Followup in 6 months. A "normal" or negative report should not discourage follow up or biopsy of a clinically significant f inding. A written summary of these findings will be mailed to the patient. The patient will be entered into a mammography reporting system which will generate a reminder letter for the patient's next appointmen t at the appropriate interval. According to the [employer], yearly mammograms are recommended starting at age 40 and continuing as long as a woman is in good health. Breast MRI is recommended for women with an garret roximately 20-25% or greater lifetime risk of breast cancer, including women with a strong family his tory of breast or ovarian cancer and women who have been treated for Hodgkin's disease. Signer Name: Laly Trimble MD Signed: 01/18/2021 11:11 AM Workstation Name: [id number]
== END 2021-01-17 10:59 | disposition home or self-care (01) ==
LOC: SPVWC 10:58
PROVIDERS: ATTEND Surgery
DX: R92.8 Other abnormal and inconclusive findings on diagnostic imaging of breast (principal)
CPT/HCPCS: 76642; 77065; G0279

== ENCOUNTER 2021-04-08 13:34 | Emergency (ER) | payer MEDICAID ==
[2021-04-08 13:45] VITALS: BP 125/75
[2021-04-08] MEDS ORDERED: SODIUM CHLORIDE 0.9% 1000 ML 1,000 ML IV ONE (13:49)
[2021-04-08] MEDS ORDERED: MECLIZINE 25 MG TAB PO ONE (13:49)
[2021-04-08] MEDS ORDERED: ONDANSETRON 4 MG/2 ML INJ IV ONE (13:49)
--- NOTE | 2021-04-08 14:44 | Emergency Department Report ---
ED Dizziness HPI - General Chief Complaint: Dizziness Stated Complaint: NAUSEA/VOMTING Time Seen by Provider: 04/08/21 13:44 Source: patient Mode of arrival: Ambulatory Limitations: No Limitations - History of Present Illness Initial Comments: This is a 60-year-old female nontoxic, well nourished in appearance, no acute signs of distress presents to the ED with 3 complaints: 1) intermittent dizziness x 3 days. Patient denies any headache or head trauma. Patient stated the dizziness is worsened with position change. Patient denies any numbness, tingling, headache, stiff neck, chest pain, shortness of breathe, numbness or tingling. Denies any visual changes or blurry vision. 2) nausea and vomiting 3 days. Stated symptoms are intermittent and started while having dizziness episode. Patient describes vomiting as food content. Patient denies any abdominal pain, chest pain, short of breath, fever, chills, headache, stiff neck, numbness or tingling. Patient denies any diarrhea or constipation. Denies any blood in stool or vomit. Patient denies any recent travels. 3) bilateral earache with some drainage x 4 days. Stated that this occurred first and then other symptoms. Patient denies any trauma to the area. Patient denies any mastoid tenderness. Agrees to tragus tenderness. Patient stated has some decrease hearing bilaterally. Patient denies any drug allergies or significant past medical history. MD Complaint: dizziness, lightheadedness -: days(s) Timing: gradual onset Description: lightheadedness, nausea History of Same: Yes History of Trauma: No Severity: mild Improves With: rest Worsens With: position Associated Symptoms: denies other symptoms. denies: ataxia, chest pain, confusion, cough, diaphoresis, fever/chills, loss of appetite, malaise, rash, seizure, shortness of breath, syncope, weakness - Related Data Home Medications Medication Instructions Recorded Confirmed Last Taken Simvastatin (Nf) [Zocor TAB] 10 mg PO QHS 07/26/15 11/24/20 07/07/18 21:00 yes lisinopriL [Zestril TAB] 20 mg PO QDAY 07/26/15 11/24/20 07/09/18 06:00 yes metFORMIN [Glucophage] 1,000 mg PO BID 07/26/15 11/24/20 07/07/18 21:00 yes Fluticasone [Flonase] 1 spray NS PRN PRN 05/28/18 11/24/20 07/07/18 09:00 Levothyroxine Sodium [Synthroid] 100 mcg PO DAILY 05/28/18 11/24/20 07/09/18 06:00 Cholecalciferol Vit D3 [Vitamin D3 1,000 unit PO QDAY 11/24/20 11/24/20 Unknown 1,000 UNIT TAB] Previous Rx's Medication Instructions Recorded Last Taken Type Amoxicillin [Amoxicillin TAB] 875 mg PO BID #20 tablet 04/08/21 Unknown Rx Ciprofloxacin HCl/Dexameth 2 drop AU BID 7 Days #7.5 ml 04/08/21 Unknown Rx [Ciprodex Otic Suspension] Meclizine [Antivert] 12.5 mg PO BID PRN #12 tablet 04/08/21 Unknown Rx Ondansetron [Zofran Odt] 4 mg PO Q8HR PRN #12 tab.rapdis 04/08/21 Unknown Rx Allergies Allergy/AdvReac Type Severity Reaction Status Date / Time No Known Allergies Allergy Verified 04/08/21 13:37 ED Review of Systems ROS: Stated complaint: NAUSEA/VOMTING Other details as noted in HPI Comment: All other systems reviewed and negative Constitutional: denies: chills, fever Eyes: denies: eye pain, eye discharge, vision change ENT: ear pain. denies: throat pain, dental pain, hearing loss, epistaxis, congestion Respiratory: denies: cough, shortness of breath, wheezing Cardiovascular: denies: chest pain, palpitations Endocrine: no symptoms reported Gastrointestinal: nausea, vomiting. denies: abdominal pain, diarrhea, constipation, hematemesis, melena, hematochezia Genitourinary: denies: urgency, dysuria, discharge Musculoskeletal: denies: back pain, joint swelling, arthralgia Skin: denies: rash, lesions Neurological: vertigo. denies: headache, weakness, numbness, paresthesias, confusion, abnormal gait Psychiatric: denies: anxiety, depression Hematological/Lymphatic: denies: easy bleeding, easy bruising ED Past Medical Hx - Past Medical History Hx Hypertension: Yes (X 6 YRS) Hx Diabetes: Yes Hx Arthritis: Yes (JOINT PAIN) Hx Headaches / Migraines: Yes (MIGRAINES) Hx Psychiatric Treatment: Yes (DEPRESSION) Hx HIV: No Additional medical history: dengenerative spine disease, gallstone. CHRONIC BA CK PAIN, thyroid disease. Elevated cholesterol - Surgical History Hx Cholecystectomy: Yes Hx Appendectomy: Yes Additional Surgical History: right hand surg for carpel tunnel. HYSTERECTOMY. thyroidectomy - Social History Smoking Status: Never Smoker - Medications Home Medications: Home Medications Medication Instructions Recorded Confirmed Last Taken Type Simvastatin (Nf) [Zocor TAB] 10 mg PO QHS 07/26/15 11/24/20 07/07/18 21:00 History yes lisinopriL [Zestril TAB] 20 mg PO QDAY 07/26/15 11/24/20 07/09/18 06:00 History yes metFORMIN [Glucophage] 1,000 mg PO BID 07/26/15 11/24/20 07/07/18 21:00 History yes Fluticasone [Flonase] 1 spray NS PRN PRN 05/28/18 11/24/20 07/07/18 09:00 Hist ory Levothyroxine Sodium [Synthroid] 100 mcg PO DAILY 05/28/18 11/24/20 07/09/18 06:00 History Cholecalciferol Vit D3 [Vitamin D3 1,000 unit PO QDAY 11/24/20 11/24/20 Unknown History 1,000 UNIT TAB] Amoxicillin [Amoxicillin TAB] 875 mg PO BID #20 tablet 04/08/21 Unknown Rx Ciprofloxacin HCl/Dexameth 2 drop AU BID 7 Days #7.5 ml 04/08/21 Unknown Rx [Ciprodex Otic Suspension] Meclizine [Antivert] 12.5 mg PO BID PRN #12 tablet 04/08/21 Unknown Rx Ondansetron [Zofran Odt] 4 mg PO Q8HR PRN #12 tab.rapdis 04/08/21 Unknown Rx ED Physical Exam - General Limitations: No Limitations General appearance: alert, in no apparent distress - Head Head exam: Present: atraumatic, normocephalic - Eye Eye exam: Present: normal appearance, PERRL, EOMI - ENT ENT exam: Present: normal orophraynx - Expanded ENT Exam Expanded TM/Canal exam: Erythema: Right TM, Left TM, Bulging: Right TM, Left TM, Canal Discharge: Right TM, Left TM Mouth exam: Present: normal external inspection, tongue normal. Absent: drooling, trismus, muffled voice Teeth exam: Present: normal inspection Throat exam: Positive: normal inspection, other (uvula midline). Negative: tonsillar erythema, tonsillomegaly, tonsillar exudate, R peritonsillar mass, L peritonsillar mass - Neck Neck exam: Present: normal inspection, full ROM. Absent: tenderness, meningismus, lymphadenopathy - Respiratory Respiratory exam: Present: normal lung sounds bilaterally. Absent: respiratory distress, wheezes, rales, rhonchi, stridor, chest wall tenderness, accessory muscle use, decreased breath sounds, prolonged expiratory - Cardiovascular Cardiovascular Exam: Present: regular rate, normal rhythm, normal heart sounds. Absent: bradycardia, tachycardia, irregular rhythm, systolic murmur, diastolic murmur, rubs, gallop - GI/Abdominal GI/Abdominal exam: Present: soft, normal bowel sounds. Absent: distended, tenderness, guarding, rebound, rigid, diminished bowel sounds - Extremities Exam Extremities exam: Present: normal inspection, full ROM, normal capillary refill. Absent: tenderness - Back Exam Back exam: Present: normal inspection, full ROM. Absent: tenderness, CVA tenderness (R), CVA tenderness (L), muscle spasm, paraspinal tenderness, vertebral tenderness, rash noted - Neurological Exam Neurological exam: Present: alert, oriented X3, normal gait - Expanded Neurological Exam Expanded Patient oriented to: Present: person, place, time Cranial nerves: EOM's Intact: Normal, Facial Sensation: Normal Cerebellar function: Finger to Nose: Normal Upper motor neuron: Pronator Drift: Normal, Sensory Extinction: Normal Motor strength exam: RUE: 5, LUE: 5, RLE: 5, LLE: 5 Best Eye Response ([place]): (4) open spontaneously Best Motor Response ([place]): (6) obeys commands Best Verbal Response ([place]): (5) oriented [place] Total: 15 - Psychiatric Psychiatric exam: Present: normal affect, normal mood - Skin Skin exam: Present: warm, dry, intact, normal color. Absent: rash ED Course Vital Signs 04/08/21 13:37 Temperature 97.8 F Pulse Rate 98 H Respiratory 18 Rate Blood Pressure 125/75 O2 Sat by Pulse 99 Oximetry - Reevaluation(s) Reevaluation #1: 04/08/21 14:46 Patient is speaking in full sentences with no signs of distress noted. ED Medical Decision Making - Lab Data Result diagrams: 04/08/21 14:44 04/08/21 14:44 Lab Results 04/08/21 04/08/21 04/08/21 Range/Units 14:23 14:44 14:44 WBC 10.9 (4.5-11.0) K/mm3 RBC 4.29 (3.65-5.03) M/mm3 Hgb 13.5 (10.1-14.3) gm/dl Hct 38.8 (30.3-42.9) % MCV 91 (79-97) fl MCH 31 (28-32) pg MCHC 35 H (30-34) % RDW 11.9 L (13.2-15.2) % Plt Count 296 (140-440) K/mm3 Lymph % (Auto) 19.2 (13.4-35.0) % [place] % (Auto) 9.8 H (0.0-7.3) % Eos % (Auto) 3.0 (0.0-4.3) % Baso % (Auto) 0.6 (0.0-1.8) % Lymph # (Auto) 2.1 (1.2-5.4) K/mm3 [place] # (Auto) 1.1 H (0.0-0.8) K/mm3 Eos # (Auto) 0.3 (0.0-0.4) K/mm3 Baso # (Auto) 0.1 (0.0-0.1) K/mm3 Seg Neutrophils % 67.4 (40.0-70.0) % Seg Neutrophils # 7.4 (1.8-7.7) K/mm3 Sodium 142 (137-145) mmol/L Potassium 4.1 (3.6-5.0) mmol/L Chloride 105.5 (98-107) mmol/L Carbon Dioxide 28 (22-30) mmol/L Anion Gap 13 mmol/L BUN 10 (7-17) mg/dL Creatinine 0.9 (0.6-1.2) mg/dL Estimated GFR > 60 ml/min BUN/Creatinine Ratio 11 % Glucose 95 (65-100) mg/dL Calcium 9.7 (8.4-10.2) mg/dL Magnesium 1.70 (1.7-2.3) mg/dL Total Bilirubin 0.20 (0.1-1.2) mg/dL AST 13 (5-40) units/L ALT 11 (7-56) units/L Alkaline Phosphatase 116 (35-129) units/L Total Protein 7.1 (6.3-8.2) g/dL Albumin 4.2 (3.9-5) g/dL Albumin/Globulin Ratio 1.4 % Lipase 45 (13-60) units/L Urine Color Yellow (Yellow) Urine Turbidity Hazy (Clear) Urine pH 7.0 (5.0-7.0) Ur Specific [place] 1.014 (1.003-1.030) Urine Protein <15 mg/dl (Negative) mg/dL Urine Glucose (UA) Neg (Negative) mg/dL Urine Ketones Neg (Negative) mg/dL Urine Blood Neg (Negative) Urine Nitrite Neg (Negative) Urine Bilirubin Neg (Negative) Urine Urobilinogen < 2.0 (<2.0) mg/dL Ur Leukocyte Esterase Sm (Negative) Urine WBC (Auto) 3.0 (0.0-6.0) /HPF Urine RBC (Auto) 3.0 (0.0-6.0) /HPF U Epithel Cells (Auto) 6.0 (0-13.0) /HPF Urine Mucus Few /HPF - EKG Data 04/08/21 15:46 Normal sinus rhythm at [address] or T wave abnormalities. Reviewed and signed by . - Radiology Data [facility] [address] [place] [address] XRay Report Signed Patient: LA NENA MENA MR#: [id number] : 1960 Acct:[id number] Age/Sex: 60 / F ADM Date: 04/08/21 Loc: ED Attending Dr: Ordering Physician: ISAI GOOD NP Date of Service: 04/08/21 Procedure(s): XR abd series w cxr 1V Accession Number(s): [id number] cc: ISAI GOOD NP Fluoro Time In Minutes: X-RAY ABDOMEN SERIES WITH CHEST PA INDICATION: Nausea and vomiting COMPARISON: None FINDINGS: CHEST: The cardiac mediastinal silhouette is within normal limits. The lungs are clear without pleural effusion or pneumothorax. ABDOMEN: Cholecystectomy clips. Bowel gas pattern is nonobstructive. No evidence of free air under the diaphragm. Hernia repair clips in the pelvis. IMPRESSION: No acute abnormality. Signer Name: Yoni Ibarra MD Signed: 04/08/2021 3:48 PM Workstation Name: [id number] Transcribed By: IAN Dictated By: YONI IBARRA MD Electronically Authenticated By: YONI IBARRA MD Signed Date/Time: 04/08/211547 DD/ 46 TD/TT: - Medical Decision Making This is a 60-year-old female that presents with dizziness, otitis media with extrna, and nausea and vomiting. Patient is stable and was examined by me. There is no abdominal tenderness. Negative signs of symptoms of appendicitis, cholecystitis or acute abdomen. EKG is normal sinus rhythm with no ST abnormalities. Labs are unremarkable. Urine obtained. Orthostatic vital signs obtained and within normal limits. Patient received medical treatment which she stated his symptoms of dizziness has subsided and resolved. Patient is neurologically stable. Xr abdomen/chest xray obtained and dictated by the radiologist. Patient is notified of the report with no questions noted by the patient. Vital signs are stable prior to discharge. A by mouth challenge has been obtained and patient tolerated well with no nausea vomiting. Patient was also instructed to Follow-up with a primary care doctor in 3-5 days or if symptoms worsen and continue return to emergency room as soon as possible. At time of discharge, the patient does not seem toxic or ill in appearance. No acute signs of distress noted. Patient agrees to discharge treatment plan of care. No further questions noted by the patient. Critical care attestation.: If time is entered above; I have spent that time in minutes in the direct care of this critically ill patient, excluding procedure time. ED Disposition Clinical Impression: Dizziness Otitis media Qualifiers: Otitis media type: unspecified Chronicity: acute Qualified Code(s): H66.90 - Otitis media, unspecified, unspecified ear Otitis externa Qualifiers: Otitis externa type: unspecified type Chronicity: acute Laterality: bilateral Qualified Code(s): H60.503 - Unspecified acute noninfective otitis externa, bilateral Nausea & vomiting Qualifiers: Vomiting type: unspecified Vomiting Intractability: non-intractable Qualified Code(s): R11.2 - Nausea with vomiting, unspecified Disposition: 01 HOME / SELF CARE / HOMELESS Is pt being admited?: No Does the pt Need Aspirin: No Condition: Stable Instructions: Otitis Media, Adult, [id number], Otitis Externa, Nausea and Vomiting, Adult, Dizziness, [id number] Additional Instructions: Follow-up with a primary care doctor in 3-5 days or if symptoms worsen and continue return to emergency room as soon as possible. Prescriptions: Amoxicillin [Amoxicillin TAB] 875 mg PO BID #20 tablet Meclizine [Antivert] 12.5 mg PO BID PRN #12 tablet PRN Reason: Vertigo Ciprofloxacin HCl/Dexameth [Ciprodex Otic Suspension] 2 drop AU BID 7 Days #7.5 ml Ondansetron [Zofran Odt] 4 mg PO Q8HR PRN #12 tab.rapdis PRN Reason: Nausea Referrals: PRIMARY CAREMD [Referring] - 3-5 Days BEREKET RING MD [Staff Physician] - 3-5 Days Forms: Work/School Release Form(ED) Time of Disposition: 16:04
[2021-04-08 14:56] LABS: Bilirubin,Urine NEG (Negative); Blood,Urine NEG (Negative); Color,Urine Yellow (Yellow); Mucus,Urine FEW /HPF; Protein,Urine <15 mg/dL mg/dL (Negative); Urobilinogen,Urine < 2.0 mg/dL (<2.0)
[2021-04-08 15:12] LABS: Basophils # (Auto) 0.1 K/mm3 (0.0-0.1); Basophils % (Auto) 0.6 % (0.0-1.8); Eosinophils # (Auto) 0.3 K/mm3 (0.0-0.4); Hematocrit 38.8 % (30.3-42.9); Hemoglobin 13.5 gm/dl (10.1-14.3); Lymphocytes # (Auto) 2.1 K/mm3 (1.2-5.4); Lymphocytes % (Auto) 19.2 % (13.4-35.0); Mean Corpuscular HGB Conc 35 % (30-34); Mean Corpuscular Volume 91 fl (79-97); Monocytes # (Auto) 1.1 K/mm3 (0.0-0.8); Monocytes % (Auto) 9.8 % (0.0-7.3); Platelet Count 296 K/mm3 (140-440); Red Blood Count 4.29 M/mm3 (3.65-5.03); Red Cell Distribution Width 11.9 % (13.2-15.2)
[2021-04-08 15:24] LABS: Alanine Aminotransferase 11 units/L (7-56); Albumin 4.2 g/dL (3.9-5); BUN/Creatinine Ratio 11; Blood Urea Nitrogen 10 mg/dL (7-17); Calcium 9.7 mg/dL (8.4-10.2); Hemolysis Index 9
--- NOTE | 2021-04-08 15:52 | XRay Report ---
X-RAY ABDOMEN SERIES WITH CHEST PA INDICATION: Nausea and vomiting COMPARISON: None FINDINGS: CHEST: The cardiac mediastinal silhouette is within normal limits. The lungs are clear without pleura l effusion or pneumothorax. ABDOMEN: Cholecystectomy clips. Bowel gas pattern is nonobstructive. No evidence of free air under th e diaphragm. Hernia repair clips in the pelvis. IMPRESSION: No acute abnormality. Signer Name: Yoni Ibarra MD Signed: 04/08/2021 3:48 PM Workstation Name: [id number]
--- NOTE | 2021-04-12 10:11 | Electrocardiograph Report ---
[facility] Test Date: 2021-04-08 Test Time: 14:12:02 Pat Name: LA NENA MENA Department: Room: Gender: F [employer] D[employer]: ANABELLA : 1960 Requested By: ISAI GOOD Order Number: [id number] Reading MD: Harsha Gordon Measurements Intervals [place] Rate: 87 P: 52 NC: 155 QRS: 54 QRSD: 82 T: 20 QT: 349 QTc: 420 Interpretive Statements Sinus rhythm Probable left atrial enlargement No previous ECG available for comparison Electronically Signed On 04-12-2021 10:10:59 EDT by Harsha Gordon
== END 2021-04-08 18:17 | disposition home or self-care (01) ==
LOC: ED 13:34
DX: R11.2 Nausea with vomiting, unspecified (principal); R42 Dizziness and giddiness; H60.93 Unspecified otitis externa, bilateral; H66.90 Otitis media, unspecified, unspecified ear; I10 Essential (primary) hypertension; E11.8 Type 2 diabetes mellitus with unspecified complications; M19.90 Unspecified osteoarthritis, unspecified site; G43.909 Migraine, unspecified, not intractable, without status migrainosus; G31.89 Other specified degenerative diseases of nervous system; K80.80 Other cholelithiasis without obstruction; M54.9 Dorsalgia, unspecified; E78.00 Pure hypercholesterolemia, unspecified; E89.0 Postprocedural hypothyroidism; Z98.890 Other specified postprocedural states
CPT/HCPCS: 36415; 74022; 80053; 81001; 83690; 83735; 85025; 93005; 96361; 96374; 99284; J2405; J7030

== ENCOUNTER 2021-05-09 09:48 | Outpatient (CLI) | payer MEDICAID ==
--- NOTE | 2021-05-09 15:15 | Magnetic Resonance Report ---
MR brain wo con INDICATION / CLINICAL INFORMATION: 60 years Female; G93.2, HEADACHES, DIZZINESS, UNSTEADY GAIT. TECHNIQUE: Multiplanar, multisequence MR images of the brain were obtained. COMPARISON: None available. FINDINGS: BRAIN / INTRACRANIAL CONTENTS: The brain appears to demonstrate appropriate signal characteristics fo r age on the combination of sequences at. The diffusion imaging is unremarkable without evidence of r ecent infarction. The ventricular system is within normal limits in size and configuration. No extra- axial fluid collections or significant mass effect is identified. CRANIOCERVICAL JUNCTION: The cerebellar tonsils appear to extend a few millimeters below the level th e foramen magnum compatible with ectopia. This may be seen as an incidental finding. VASCULAR FLOW-VOIDS: The distal left vertebral artery is not well visualized and appears reflect deve lopmental hypoplasia. The distal internal carotid arteries appear to demonstrate appropriate signal v oids. ORBITS: No significant abnormality of visualized orbits. SINUSES / MASTOIDS: No significant abnormality in the visualized paranasal sinuses or mastoid air emerald ls. ADDITIONAL FINDINGS: None. IMPRESSION: 1. There is mild cerebellar as detailed above at. The MRI the brain otherwise appears unremarkable fo r age without evidence of acute intracranial process. Signer Name: Ronald Puente MD Signed: 05/09/2021 3:11 PM Workstation Name: [id number]
== END 2021-05-09 09:49 | disposition home or self-care (01) ==
LOC: MRI 09:48
PROVIDERS: ATTEND Family Medicine
DX: G93.2 Benign intracranial hypertension (principal); H90.11 Conductive hearing loss, unilateral, right ear, with unrestricted hearing on the contralateral side; R51.9 Headache, unspecified; R42 Dizziness and giddiness
CPT/HCPCS: 70551

== ENCOUNTER 2021-05-28 20:37 | Emergency (ER) | payer MEDICAID ==
[2021-05-28 20:53] VITALS: BP 157/93
[2021-05-28 21:23] LABS: Basophils # (Auto) 0.1 K/mm3 (0.0-0.1); Basophils % (Auto) 0.7 % (0.0-1.8); Eosinophils # (Auto) 0.3 K/mm3 (0.0-0.4); Eosinophils % (Auto) 2.8 % (0.0-4.3); Hematocrit 40.4 % (30.3-42.9); Hemoglobin 13.4 gm/dl (10.1-14.3); Lymphocytes # (Auto) 2.4 K/mm3 (1.2-5.4); Lymphocytes % (Auto) 25.9 % (13.4-35.0); Mean Corpuscular HGB Conc 33 % (30-34); Mean Corpuscular Volume 92 fl (79-97); Monocytes # (Auto) 0.8 K/mm3 (0.0-0.8); Monocytes % (Auto) 8.9 % (0.0-7.3); Platelet Count 299 K/mm3 (140-440); Red Blood Count 4.37 M/mm3 (3.65-5.03); Red Cell Distribution Width 12.5 % (13.2-15.2)
[2021-05-28 21:42] LABS: Alanine Aminotransferase 10 units/L (7-56); Albumin 4.2 g/dL (3.9-5); Blood Urea Nitrogen 10 mg/dL (7-17); Calcium 9.5 mg/dL (8.4-10.2); Hemolysis Index 36
[2021-05-28 21:51] LABS: BUN/Creatinine Ratio 14
--- NOTE | 2021-05-28 22:24 | XRay Report ---
CHEST 2 VIEWS INDICATION / CLINICAL INFORMATION: Chest Pain. COMPARISON: 08/12/2020 FINDINGS: SUPPORT DEVICES: None. HEART / MEDIASTINUM: No significant abnormality. LUNGS / PLEURA: No significant pulmonary or pleural abnormality. No pneumothorax. ADDITIONAL FINDINGS: No significant additional findings. IMPRESSION: 1. No acute findings. Signer Name: Duncan Markham MD Signed: 05/28/2021 10:19 PM Workstation Name: [id number]
--- NOTE | 2021-05-28 22:49 | Emergency Department Report ---
ED Chest Pain HPI - General Chief Complaint: Chest Pain Stated Complaint: CHEST PAIN Time Seen by Provider: 05/28/21 22:08 Source: patient Mode of arrival: Ambulatory Limitations: No Limitations - History of Present Illness Initial Comments: Patient presents with a 2-day history of chest pain. On Friday she started having substernal chest pain. This started in the epigastric area and radiates up into the chest. It lasted about 3 minutes and then resolves. She describes it as sharp and tight. The pain does not radiate or migrate. It is not ex ertional. It is not positional. It is not pleuritic. She states that it does occasionally wake her up at night. Again, these episodes last for 3 minutes and occur throughout the day. She has not really noticed any aggravating or alleviating factors specifically. She came here for evaluation and treatment due to the pain. There is no pain or swelling in the legs. - Related Data Home Medications Medication Instructions Recorded Confirmed Last Taken Simvastatin (Nf) [Zocor TAB] 10 mg PO QHS 07/26/15 11/24/20 07/07/18 21:00 yes lisinopriL [Zestril TAB] 20 mg PO QDAY 07/26/15 11/24/20 07/09/18 06:00 yes metFORMIN [Glucophage] 1,000 mg PO BID 07/26/15 11/24/20 07/07/18 21:00 yes Fluticasone [Flonase] 1 spray NS PRN PRN 05/28/18 11/24/20 07/07/18 09:00 Levothyroxine Sodium [Synthroid] 100 mcg PO DAILY 05/28/18 11/24/20 07/09/18 06:00 Cholecalciferol Vit D3 [Vitamin D3 1,000 unit PO QDAY 11/24/20 11/24/20 Unknown 1,000 UNIT TAB] Previous Rx's Medication Instructions Recorded Last Taken Type Amoxicillin [Amoxicillin TAB] 875 mg PO BID #20 tablet 04/08/21 Unknown Rx Ciprofloxacin HCl/Dexameth 2 drop AU BID 7 Days #7.5 ml 04/08/21 Unknown Rx [Ciprodex Otic Suspension] Meclizine [Antivert] 12.5 mg PO BID PRN #12 tablet 04/08/21 Unknown Rx Ondansetron [Zofran Odt] 4 mg PO Q8HR PRN #12 tab.rapdis 04/08/21 Unknown Rx Sucralfate [Carafate] 1 gm PO ACHS #120 tablet 05/28/21 Unknown Rx Allergies Allergy/AdvReac Type Severity Reaction Status Date / Time No Known Allergies Allergy Verified 04/08/21 13:37 Heart Score - HEART Score History: Slightly suspicious EKG: Normal Age: 45-65 Risk factors: > 3 risk factors or hx of atherosclerotic disease Troponin: < normal limit HEART Score: 3 - EKG Read Time Time EKG Completed: 20:57 EKG Read Time: 21:00 ED Review of Systems ROS: Stated complaint: CHEST PAIN Other details as noted in HPI Comment: All other systems reviewed and negative Constitutional: denies: fever Eyes: denies: vision change ENT: denies: throat pain Respiratory: denies: cough Cardiovascular: as per HPI Endocrine: denies: unexplained weight loss Gastrointestinal: denies: abdominal pain Genitourinary: denies: dysuria Musculoskeletal: denies: back pain Skin: denies: rash Neurological: denies: headache Hematological/Lymphatic: denies: easy bruising ED Past Medical Hx - Past Medical History Hx Hypertension: Yes (X 6 YRS) Hx Diabetes: Yes Hx Arthritis: Yes (JOINT PAIN) Hx Headaches / Migraines: Yes (MIGRAINES) Hx Psychiatric Treatment: Yes (DEPRESSION) Hx HIV: No Additional medical history: dengenerative spine disease, gallstone. CHRONIC BACK PAIN, thyroid disease. Elevated cholesterol - Surgical History Hx Cholecystectomy: Yes Hx Appendectomy: Yes Additional Surgical History: right hand surg for carpel tunnel. HYSTERECTOMY. thyroidectomy - Family History Family history: CAD/SD (Father had a heart attack in his mid 70s), cancer (Mo ther from cancer at 58), hypertension - Social History Smoking Status: Never Smoker - Medications Home Medications: Home Medications Medication Instructions Recorded Confirmed Last Taken Type Simvastatin (Nf) [Zocor TAB] 10 mg PO QHS 07/26/15 11/24/20 07/07/18 21:00 History yes lisinopriL [Zestril TAB] 20 mg PO QDAY 07/26/15 11/24/20 07/09/18 06:00 History yes metFORMIN [Glucophage] 1,000 mg PO BID 07/26/15 11/24/20 07/07/18 21:00 History yes Fluticasone [Flonase] 1 spray NS PRN PRN 05/28/18 11/24/20 07/07/18 09:00 History Levothyroxine Sodium [Synthroid] 100 mcg PO DAILY 05/28/18 11/24/20 07/09/18 06:00 History Cholecalciferol Vit D3 [Vitamin D3 1,000 unit PO QDAY 11/24/20 11/24/20 Unknown History 1,000 UNIT TAB] Amoxicillin [Amoxicillin TAB] 875 mg PO BID #20 tablet 04/08/21 Unknown Rx Ciprofloxacin HCl/Dexameth 2 drop AU BID 7 Days #7.5 ml 04/08/21 Unknown Rx [Ciprodex Otic Suspension] Meclizine [Antivert] 12.5 mg PO BID PRN #12 tablet 04/08/21 Unknown Rx Ondansetron [Zofran Odt] 4 mg PO Q8HR PRN #12 tab.rapdis 04/08/21 Unknown Rx Sucralfate [Carafate] 1 gm PO ACHS #120 tablet 05/28/21 Unknown Rx ED Physical Exam - General Limitations: No Limitations, Other (Pulse ox noted normal) General appearance: alert, in no apparent distress - Head Head exam: Present: atraumatic, normocephalic, normal inspection - Eye Eye exam: Present: normal appearance, EOMI. Absent: scleral icterus - ENT ENT exam: Present: mucous membranes moist, normal external ear exam - Neck Neck exam: Present: normal inspection. Absent: meningismus - Respiratory Respiratory exam: Present: normal lung sounds bilaterally. Absent: respiratory distress - Cardiovascular Cardiovascular Exam: Present: regular rate, normal rhythm - GI/Abdominal GI/Abdominal exam: Present: soft. Absent: tenderness - Extremities Exam Extremities exam: Present: normal capillary refill. Absent: calf tenderness - Back Exam Back exam: Absent: CVA tenderness (R), CVA tenderness (L) - Neurological Exam Neurological exam: Present: alert, oriented X3, CN II-XII intact, normal gait. Absent: motor sensory deficit - Psychiatric Psychiatric exam: Present: normal affect, normal mood - Skin Skin exam: Present: warm, dry ED Course Vital Signs 05/28/21 20:50 Temperature 98.9 F Pulse Rate 67 Respiratory 17 Rate Blood Pressure 157/93 [Left] O2 Sat by Pulse 98 Oximetry - Reevaluation(s) Reevaluation #1: 05/28/21 22:46 Work-up was complete and the patient was discharged. Old records noted. Reevaluation #2: 05/28/21 23:42 Labs were completed and the patient was discharged RONDA score - Ronda Score Age > 65: (0) No Aspirin use within the Past 7 Days: (0) No 3 or more CAD Risk Factors: (1) Yes 2 or more Angina events in past 24 hrs: (1) Yes Known CAD with more than 50% Stenosis: (0) No Elevated Cardiac Markers: (0) No ST Deviation Greater than 0.5mm: (0) No RONDA Score: 2 ED Medical Decision Making - Lab Data Result diagrams: 05/28/21 21:04 05/28/21 21:04 - EKG Data -: EKG Interpreted by Me - EKG Data 05/28/21 22:49 2056-EKG shows normal sinus rhythm at 69. Intervals normal including a QRS of 8 6 and a QT corrected of 418. Patient has no ST elevation to suggest STEMI. There is no ST depression suggestive of ischemia. There is no change from old EKG. 05/28/21 22:50 - Medical Decision Making Patient presents with chest pain that does not seem to be cardiac in nature. It was fleeting. It was not exertional. She does have risk factors, but her story does not seem to be consistent with ACS. There is certainly no evidence of STEMI. There is no radiographic evidence of pneumonia or pneumothorax. Patient has no recent immobility or unilateral leg swelling that would suggest DVT or PE. Patient does not have a wide mediastinum or pulse does not suggest a rctic dissection. There is no radiographic evidence of pneumonia or pneumothorax. Patient was treated symptomatically and discharged. Critical Care Time: No Critical care attestation.: If time is entered above; I have spent that time in minutes in the direct care of this critically ill patient, excluding procedure time. ED Disposition Clinical Impression: Substernal chest pain Disposition: 01 HOME / SELF CARE / HOMELESS Is pt being admited?: No Condition: Stable Instructions: Nonspecific Chest Pain, Adult, Pain Without a Known Cause Additional Instructions: Have a bland diet. Drink plenty water. Return for problems. Follow-up with your regular doctor for recheck and further management. Prescriptions: Sucralfate [Carafate] 1 gm PO ACHS #120 tablet Referrals: PRIMARY CARE, [Primary Care Provider] - 3-5 Days PK MOORE MD [Staff Physician] - 3-5 Days CHARO MCKEON MD [Staff Physician] - 3-5 Days
--- NOTE | 2021-05-31 10:07 | Electrocardiograph Report ---
[facility] Test Date: 2021-05-28 Test Time: 20:57:37 Pat Name: LA NENA MENA Department: Room: Gender: F Hotel Reservationist: MIHAELA : 1960 Requested By: CARMELITA CALERO Order Number: [id number] Reading MD: Harsha Gordon Measurements Intervals [place] Rate: 69 P: 57 AK: 164 QRS: 54 QRSD: 86 T: 37 QT: 391 QTc: 418 Interpretive Statements Sinus rhythm Compared to ECG 04/08/2021 14:12:02 No significant changes Electronically Signed On 05-31-2021 10:07:07 EST by Harsha Gordon
== END 2021-05-28 23:50 | disposition home or self-care (01) ==
LOC: ED 20:37
DX: R07.89 Other chest pain (principal); I10 Essential (primary) hypertension; E11.8 Type 2 diabetes mellitus with unspecified complications; Z90.49 Acquired absence of other specified parts of digestive tract; Z90.89 Acquired absence of other organs
CPT/HCPCS: 36415; 71046; 80053; 84484; 85025; 93005; 99283

== ENCOUNTER 2021-06-08 11:11 | Emergency (ER) | payer MEDICAID ==
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
[2021-06-08 12:02] VITALS: BP 130/74
== END 2021-06-08 12:01 | disposition home or self-care (01) ==
LOC: ED 11:11
DX: M54.2 Cervicalgia (principal); G43.909 Migraine, unspecified, not intractable, without status migrainosus; I10 Essential (primary) hypertension; E11.9 Type 2 diabetes mellitus without complications; F32.9 Major depressive disorder, single episode, unspecified; Z90.49 Acquired absence of other specified parts of digestive tract; Z98.890 Other specified postprocedural states; Z79.899 Other long term (current) drug therapy; V87.7XXA Person injured in collision between other specified motor vehicles (traffic), initial encounter; Y93.89 Activity, other specified; Y92.488 Other paved roadways as the place of occurrence of the external cause; Y99.8 Other external cause status
CPT/HCPCS: 99282

== ENCOUNTER → 2021-07-10 | Emergency (ER) | payer MEDICAID, OTHER ==
[2021-07-10 08:28] VITALS: BP 117/79
== END ==
LOC: ED 07:43
DX: R06.02 Shortness of breath (principal); Z53.21 Procedure and treatment not carried out due to patient leaving prior to being seen by health care provider

== ENCOUNTER 2021-09-06 05:58 | Day surgery (SDC) | payer MEDICAID ==
[2021-09-06] MEDS ORDERED: LACTATED RINGERS 1,000 ML ONE (06:51)
--- NOTE | 2021-09-06 07:19 | Anesthesia Day of Surgery ---
Anesthesia Day of Surgery - Day of Surgery Patient Examined: Yes Patient H&P Reviewed: Yes Patient is NPO: Yes
[2021-09-06] MEDS ORDERED: ONDANSETRON 4 MG/2 ML INJ IV PRN (07:20)
[2021-09-06] MEDS ORDERED: HYDROmorphone 1 MG/1 ML INJ IV PRN ×2 (07:20→08:00)
--- NOTE | 2021-09-06 07:24 | Anesthesia Consultation ---
Anesthesia Consult and Med Hx Date of service: 09/06/21 - Airway Anesthetic Teeth Evaluation: Chipped, Partials ROM Head & Neck: Adequate Mental/Hyoid Distance: Adequate Mallampati Class: Class II Intubation Access Assessment: Good - Pre-Operative Health Status ASA Pre-Surgery Classification: ASA3 Proposed Anesthetic Plan: General - Pulmonary Hx Smoking: No Hx Sleep Apnea: Yes (DX SLEEP APNEA , NO CPAP USE) - Cardiovascular System Hx Hypertension: Yes - Central Nervous System Hx Back Pain: Yes (NECK AND BACK PAIN - CHRONIC) Hx Psychiatric Problems: Yes (Depression/Schizo) - Gastrointestinal Hx Gastroesophageal Reflux Disease: No - Endocrine Hx Non-Insulin Dependent Diabetes: Yes Hx Thyroid Disease: Yes Hx Hypothyroidism: Yes (ON DAILY MEDS) - Hematic Hx Anemia: No - Other Systems Hx Substance Use: No Hx Cancer: Yes Hx Obesity: No
[2021-09-06] MEDS ORDERED: propofoL 200 MG/20 ML VIAL IV ONE (07:40)
[2021-09-06] MEDS ORDERED: fentaNYL 100 MCG/2 ML INJ ONE (07:40)
[2021-09-06] MEDS ORDERED: LIDOCAINE MPF (2%) 20 MG/1 ML VIAL 5 ML ONE (07:40)
[2021-09-06] MEDS ORDERED: SCOPOLAMINE TRANSDERMAL PATCH 72 HR TD ONE (07:48)
[2021-09-06] MEDS ORDERED: MIDAZOLAM 2 MG/2 ML INJ IV NR (08:00)
[2021-09-06] MEDS ORDERED: SCOPOLAMINE TRANSDERMAL PATCH 72 HR TD NR (08:00)
[2021-09-06] MEDS ORDERED: ceFAZolin/STERILE WATER 2 GM/20 ML SYRINGE IV NR (08:00)
[2021-09-06] MEDS ORDERED: LACTATED RINGERS 1,000 ML IV SCH (08:00)
[2021-09-06] MEDS ORDERED: HYDROmorphone 1 MG/1 ML INJ ONE (08:38)
[2021-09-06] MEDS ORDERED: SODIUM CHLORIDE 0.9% IRR 1,500 ML BOTTLE IR ONE (08:40)
[2021-09-06] MEDS ORDERED: dexAMETHasone 20 MG/5 ML VIAL ONE (09:07)
[2021-09-06] MEDS ORDERED: ONDANSETRON 4 MG/2 ML INJ ONE (09:07)
[2021-09-06] MEDS ORDERED: KETOROLAC 30 MG/1 ML INJ ONE (09:07)
[2021-09-06] MEDS ORDERED: HYDROcodone/ACETAMINOPHEN 5-325 MG TAB PO PRN (10:12)
[2021-09-06 10:33] VITALS: BP 137/86
--- NOTE | 2021-09-06 12:57 | Post Anesthesia Evaluation ---
- Post Anesthesia Evaluation Patient Participated: Yes Airway Patent: Yes Stable Respiratory Function: Yes Nausea/Vomiting: No Temp > 96.8F: Yes Pain Manageable: Yes Adequeate Hydration: Yes Anesthesia Complications: No Block Receding Appropriately: Not Applicable Patient on Ventilator: No
--- NOTE | 2021-09-06 14:05 | Operative Report ---
Operative Report Operative Report: OPERATIVE REPORT Preroperative diagnosis ; carpal tunnel syndrome, left hand Postoperative diagnosis: Carpal Tunnel Syndrome, LEFT hand Procedure performed: Carpal tunnel release, left hand . Anesthesia: General with LMA Surgeon: Javier Lauren MD Details of operative technique: The patient was prepared in same-day surgery. She was then brought to the operating room where she underwent anesthesia utilizing an LMA. The left hand was then prepped and draped in the usual sterile fashion with ChloraPrep solution. The left upper extremity was then exsanguinated with an Esmarch bandage and the tourniquet was inflated to 250 mmHg. A timeout was then called and once again the correct site was identified. A straight midline incision was then made paralleling the thenar crease for 3.5 cm in length. Dissection was carried down through the fibrofatty layer. Bleeders were cauterized with the Bovie. Palmar fascia was then divided and retractors were placed. The distal edge of the transverse carpal ligament was identified and a small opening was created with tenotomy scissors. Following this a freer elevator was inserted underneath the ligament and with the wrist in extension the ligament was cut from distal to proximal under direct vision with a scalpel. The proximal portion was released with small tenotomy scissors with maximum dorsiflexion of the wrist. The contents of the canal were then inspected. The median nerve was seen to have an hourglass indentation. There was no synovitis present. There were no anomalous masses or tendons present. The wound was then irrigated with normal saline. The skin was reapproximated with 3-0 nylon interrupted sutures. Sterile compressive dressing was then applied followed by a cock-up splint which was secured with an Shahab wrap. The patient was then awakened and taken to recovery room in good condition. Estimated blood loss: Negligible Drains: None Complications: None Tourniquet time: 15 minutes
== END 2021-09-06 10:45 | disposition home or self-care (01) ==
LOC: OR 05:58
PROVIDERS: ATTEND Orthopaedic Surgery
DX: G56.02 Carpal tunnel syndrome, left upper limb (principal); I20.0 Unstable angina; I10 Essential (primary) hypertension; G43.909 Migraine, unspecified, not intractable, without status migrainosus; G47.30 Sleep apnea, unspecified; K21.9 Gastro-esophageal reflux disease without esophagitis; M19.90 Unspecified osteoarthritis, unspecified site; E03.9 Hypothyroidism, unspecified; E11.9 Type 2 diabetes mellitus without complications; F31.9 Bipolar disorder, unspecified; Z79.899 Other long term (current) drug therapy; Z79.84 Long term (current) use of oral hypoglycemic drugs; Z90.49 Acquired absence of other specified parts of digestive tract; Z90.710 Acquired absence of both cervix and uterus; Z85.89 Personal history of malignant neoplasm of other organs and systems; Z98.890 Other specified postprocedural states; Z86.73 Personal history of transient ischemic attack (TIA), and cerebral infarction without residual deficits
CPT/HCPCS: 64721; 82962; J0690; J1100; J1170; J1885; J2250; J2405; J2704; J3010; J3490; J7120

== ENCOUNTER 2021-10-04 08:25 | Outpatient (CLI) | payer MEDICAID | END 2021-10-04 08:26 | disposition home or self-care (01) | LOC: MAMMO 08:25 | PROVIDERS: ATTEND Psychiatry & Neurology Neurology | DX: Z12.31 Encounter for screening mammogram for malignant neoplasm of breast (principal) | CPT/HCPCS: 77067 ==

== ENCOUNTER 2022-01-22 14:42 | Emergency (ER) | payer MEDICAID ==
--- NOTE | 2022-01-22 15:04 | Emergency Department Report ---
ED Chest Pain HPI - General Stated Complaint: CHEST PAIN PUI?: No Time Seen by Provider: 01/22/22 15:02 Source: patient Mode of arrival: Ambulatory Limitations: No Limitations - History of Present Illness Initial Comments: 61 yo comes to ER with cp - off and on for 1 week. She has htn, hld, obese and family hx cad. pos sob covid immunizations utd also endorses dizziness no fever/no chills PT HAS HX GERD BUT THIS IS NOT HER GERD PAIN MD Complaint: chest pain - Related Data Home Medications Medication Instructions Recorded Confirmed Last Taken Simvastatin (Nf) [Zocor TAB] 10 mg PO QHS 07/26/15 09/06/21 09/05/21 20:00 lisinopriL [Zestril TAB] 20 mg PO QDAY 07/26/15 09/06/21 09/05/21 09:00 metFORMIN [Glucophage] 1,000 mg PO BID 07/26/15 09/06/21 09/05/21 18:00 Fluticasone [Flonase] 1 spray NS PRN PRN 05/28/18 08/30/21 07/07/18 09:00 Levothyroxine Sodium [Synthroid] 88 mcg PO DAILY 05/28/18 08/30/21 07/09/18 06:00 Cholecalciferol Vit D3 [Vitamin D3 50,000 unit PO QWEEK 11/24/20 08/30/21 Unknown 1,000 UNIT TAB] Sucralfate [Carafate] 1 gm PO PRN PRN 08/30/21 08/30/21 Unknown Previous Rx's Medication Instructions Recorded Last Taken Type Meclizine [Antivert] 12.5 mg PO BID PRN #12 tablet 04/08/21 Unknown Rx Ondansetron [Zofran Odt] 4 mg PO Q8HR PRN #12 tab.rapdis 04/08/21 Unknown Rx Naproxen 375 mg PO BID PRN #14 tablet 06/08/21 Unknown Rx methOCARBAMOL [Robaxin TAB] 500 mg PO BID PRN #14 tab 06/08/21 Unknown Rx Allergies Allergy/AdvReac Type Severity Reaction Status Date / Time No Known Allergies Allergy Verified 06/08/21 11:11 Heart Score - HEART Score History: Moderately suspicious EKG: Non-specific Age: 45-65 Risk factors: > 3 risk factors or hx of atherosclerotic disease Troponin: < normal limit HEART Score: 5 - EKG Read Time Time EKG Completed: 03:03 EKG Read Time: 03:03 ED Review of Systems ROS: Stated complaint: CHEST PAIN Other details as noted in HPI Comment: All other systems reviewed and negative ED Past Medical Hx - Past Medical History Previous Medical History?: Yes Hx Hypertension: Yes Hx CVA: No Hx Heart Attack/AMI: No Hx Congestive Heart Failure: No Hx Diabetes: Yes Hx Deep Vein Thrombosis: No Hx Pulmonary Embolism: No Hx GERD: Yes Hx Liver Disease: No Hx Renal Disease: No Hx of Cancer: No Hx Sickle Cell Disease: No Hx Arthritis: Yes (JOINT PAIN) Hx Headaches / Migraines: Yes (MIGRAINES) Hx Seizures: No Hx Kidney Stones: No Hx Psychiatric Treatment: Yes (DEPRESSION) Hx Asthma: No Hx HIV: No Additional medical history: dengenerative spine disease, gallstone. CHRONIC BACK PAIN, thyroid disease. Elevated cholesterol - Surgical History Past Surgical History?: Yes Hx Cholecystectomy: Yes Hx Appendectomy: Yes Additional Surgical History: right hand surg for carpel tunnel. HYSTERECTOMY. thyroidectomy - Family History Family history: no significant - Social History Smoking Status: Never Smoker Substance Use Type: None - Medications Home Medications: Home Medications Medication Instructions Recorded Confirmed Last Taken Type Simvastatin (Nf) [Zocor TAB] 10 mg PO QHS 07/26/15 09/06/21 09/05/21 20:00 History lisinopriL [Zestril TAB] 20 mg PO QDAY 07/26/15 09/06/21 09/05/21 09:00 History metFORMIN [Glucophage] 1,000 mg PO BID 07/26/15 09/06/21 09/05/21 18:00 History Fluticasone [Flonase] 1 spray NS PRN PRN 05/28/18 08/30/21 07/07/18 09:00 History Levothyroxine Sodium [Synthroid] 88 mcg PO DAILY 05/28/18 08/30/21 07/09/18 06:00 History Cholecalciferol Vit D3 [Vitamin D3 50,000 unit PO QWEEK 11/24/20 08/30/21 Unknown History 1,000 UNIT TAB] Meclizine [Antivert] 12.5 mg PO BID PRN #12 tablet 04/08/21 08/30/21 Unknown Rx Ondansetron [Zofran Odt] 4 mg PO Q8HR PRN #12 tab.rapdis 04/08/21 08/30/21 Unknown Rx Naproxen 375 mg PO BID PRN #14 tablet 06/08/21 08/30/21 Unknown Rx methOCARBAMOL [Robaxin TAB] 500 mg PO BID PRN #14 tab 06/08/21 08/30/21 Unknown Rx Sucralfate [Carafate] 1 gm PO PRN PRN 08/30/21 08/30/21 Unknown History ED Physical Exam - General Limitations: No Limitations General appearance: alert, in no apparent distress - Head Head exam: Present: atraumatic, normocephalic - Eye Eye exam: Present: normal appearance - ENT ENT exam: Present: mucous membranes moist - Neck Neck exam: Present: normal inspection - Respiratory Respiratory exam: Present: normal lung sounds bilaterally. Absent: respiratory distress - Cardiovascular Cardiovascular Exam: Present: regular rate, normal rhythm. Absent: systolic murmur, diastolic murmur, rubs, gallop - GI/Abdominal GI/Abdominal exam: Present: soft, normal bowel sounds - Extremities Exam Extremities exam: Present: normal inspection - Back Exam Back exam: Present: normal inspection - Neurological Exam Neurological exam: Present: alert, oriented X3 - Psychiatric Psychiatric exam: Present: normal affect, normal mood - Skin Skin exam: Present: warm, dry, intact, normal color. Absent: rash ED Course Vital Signs 01/22/22 15:02 Temperature 98.9 F Pulse Rate 98 H Respiratory 14 Rate Blood Pressure 134/97 O2 Sat by Pulse 99 Oximetry RONDA score - Ronda Score Age > 65: (0) No Aspirin use within the Past 7 Days: (0) No 3 or more CAD Risk Factors: (1) Yes 2 or more Angina events in past 24 hrs: (1) Yes Known CAD with more than 50% Stenosis: (0) No Elevated Cardiac Markers: (0) No ST Deviation Greater than 0.5mm: (0) No RONDA Score: 2 ED Medical Decision Making - Medical Decision Making MSE COMPLETE HIGH RISK CP TO ER FOR EVAL Critical care attestation.: If time is entered above; I have spent that time in minutes in the direct care of this critically ill patient, excluding procedure time. ED Disposition Clinical Impression: Chest pain Disposition: 30 STILL A PATIENT Is pt being admited?: No Does the pt Need Aspirin: No Condition: Stable Instructions: Nonspecific Chest Pain, Adult
[2022-01-22 15:07] VITALS: BP 134/97
--- NOTE | 2022-01-22 15:31 | XRay Report ---
CHEST 2 VIEWS INDICATION / CLINICAL INFORMATION: Chest Pain. COMPARISON: 05/28/2021 FINDINGS: SUPPORT DEVICES: None. HEART / MEDIASTINUM: No significant abnormality. LUNGS / PLEURA: No significant pulmonary or pleural abnormality. No pneumothorax. ADDITIONAL FINDINGS: No significant additional findings. IMPRESSION: 1. No acute findings. Signer Name: Alfred Kim MD Signed: 01/22/2022 3:27 PM Workstation Name: [id number]
[2022-01-22 16:17] LABS: Alanine Aminotransferase 18 units/L (7-56); Albumin 4.5 g/dL (3.9-5); Calcium 10.1 mg/dL (8.4-10.2); Hemolysis Index 5
[2022-01-22 16:21] LABS: Basophils # (Auto) 0.1 K/mm3 (0.0-0.1); Basophils % (Auto) 0.8 % (0.0-1.8); Eosinophils # (Auto) 0.3 K/mm3 (0.0-0.4); Eosinophils % (Auto) 3.1 % (0.0-4.3); Hematocrit 41.1 % (30.3-42.9); Hemoglobin 14.2 gm/dl (10.1-14.3); Lymphocytes # (Auto) 2.2 K/mm3 (1.2-5.4); Lymphocytes % (Auto) 25.2 % (13.4-35.0); Mean Corpuscular HGB Conc 35 % (30-34); Mean Corpuscular Volume 89 fl (79-97); Monocytes # (Auto) 0.8 K/mm3 (0.0-0.8); Monocytes % (Auto) 9.4 % (0.0-7.3); Platelet Count 317 K/mm3 (140-440); Red Blood Count 4.63 M/mm3 (3.65-5.03); Red Cell Distribution Width 12.3 % (13.2-15.2)
[2022-01-22 16:36] LABS: Blood Urea Nitrogen 5 mg/dL (7-17)
[2022-01-22 16:46] LABS: BUN/Creatinine Ratio 8
--- NOTE | 2022-01-24 18:16 | Electrocardiograph Report ---
[facility] Test Date: 2022-01-22 Test Time: 15:09:28 Pat Name: LA NENA MENA Department: Room: Gender: F Mapping Specialist: MALISSA : 1960 Requested By: JYOTI ELLISON Order Number: [id number] Reading MD: Harsha Gordon Measurements Intervals [place] Rate: 93 P: 43 [place]: 163 QRS: 56 QRSD: 84 T: -8 QT: 355 QTc: 441 Interpretive Statements Sinus rhythm Probable left atrial enlargement Compared to ECG 05/28/2021 20:57:37 No significant changes Electronically Signed On 01-24-2022 18:15:54 EDT by Harsha Gordon
== END 2022-01-23 08:53 | disposition left against medical advice (07) ==
LOC: ED 14:42
DX: R07.89 Other chest pain (principal)
CPT/HCPCS: 36415; 71046; 80053; 84484; 85025; 93005; 99283